=== PATIENT | female | born 1950 | race Caucasian/White ===

== ENCOUNTER → 2017-12-12 15:04 | Outpatient (CLI) | payer MEDICARE, SELFPAY ==
--- NOTE | 2017-12-12 15:10 | DI.RAD.S_ITS ---
PROCEDURE: XR HIP W PEL IF DONE RT 2V INDICATIONS: hip pain TECHNIQUE: AP pelvis with lateral view(s) of the right /hip(s). COMPARISON: None. FINDINGS: Bones: No fractures or dislocations. Pelvic ring appears intact. No suspicious bony lesions. Mild degenerative hip disease right greater than left. Soft tissues: The visualized bowel gas pattern is normal. No suspicious soft tissue calcifications. IMPRESSION: Mild hip joint degeneration. No acute bony abnormality. Dictated by: Cesario Jenkins M.D. on 12/12/2017 at 15:46 Approved by: Cesario Jenkins M.D. on 12/12/2017 at 15:47
[2017-12-12 16:31] LABS: HEMOLYSIS < 15 (0-50); Iron 41 ug/dL (37-170)
[2017-12-12 16:42] LABS: Percent Iron Saturation 10 % (15-50); Total Iron Binding Capacity 428 ug/mL (265-497); Transferrin 351 mg/dL (206-381)
[2017-12-12 16:51] LABS: Add Manual Diff / Slide Review NO; Basophils Percent Auto 0.9 % (0-2); Eosinophils Percent Auto 2.7 % (2-4); Hematocrit 32.1 % (36-46); Hemoglobin 10.8 g/dL (12.0-16.0); Lymphocytes Percent Auto 27.8 % (25-40); Mean Corpuscular HGB Conc 33.6 % (30-36); Mean Corpuscular Hemoglobin 28.3 PG (26-34); Mean Corpuscular Volume 84.4 fL (80-100); Monocytes Percent Auto 6.9 % (3-14); Neutrophils Absolute Auto 5200 /uL (3000-5900); Neutrophils Percent Auto 61.7 % (50-75); Platelet Count 195 X10^3/uL (150-400); Red Cell Distribution Width 18.7 % (11.6-14.8); White Blood Cell Count 8.4 X10^3/uL (4.5-11.0)
== END ==
PROVIDERS: PCP Family Medicine; Visit Provider Family Medicine
DX: D64.9 Anemia, unspecified (principal)
CPT/HCPCS: 36415; 73502; 83540; 83550; 85025

== ENCOUNTER → 2017-12-29 13:30 | Outpatient (CLI) | payer OTHER, MEDICARE, SELFPAY | PROVIDERS: PCP Family Medicine; Visit Provider Family Medicine | DX: Z13.820 Encounter for screening for osteoporosis (principal); Z78.0 Asymptomatic menopausal state; E11.9 Type 2 diabetes mellitus without complications; Z85.3 Personal history of malignant neoplasm of breast; S32.000A Wedge compression fracture of unspecified lumbar vertebra, initial encounter for closed fracture | CPT/HCPCS: 77080 ==

== ENCOUNTER 2018-01-27 07:04 | Day surgery (SDC) | payer MEDICARE, SELFPAY ==
[2018-01-27] VITALS (10 sets, daily range): BP systolic 75–147; BP diastolic 23–76; PULSE 63–71; RESP 16–20; TEMP 36.3–36.6; O2SAT 95–100; BMI 39.4
--- NOTE | 2018-01-27 | PATH_ITS ---
[facility] Accession Number: [id number] . 01 Material submitted: . CECAL POLYP . 02 Diagnosis: Biopsy Cecal Polyp: Tubular adenoma involving single biopsy fragment. MRV/01/28/2018 . 02 Electronically signed: . Bobby Canales MD, Pathologist NPI- [id number] . 01 Gross description: . Received in one formalin-filled container, labeled with the patient's name, labeled cecal polyp, are two 0.2-0.3 cm portions of tissue, entirely submitted in one cassette. ([id number]) /FRR . 02 Pathologist provided ICD-10: D12.0 . 02 CPT . 623847 Performed at: 01 [facility] [address] [id number] MD Andrés Yoo MD Phone: [phone] Performed at: 02 [facility] [address] [place], [place] [id number] MD Randy Leach MD Phone: [phone]
--- NOTE | 2018-01-27 07:33 | PM.PREOP ---
Pre-operative Note Interval Note Pre-op Check: History & Physical Reviewed by Physician, Exam Performed and Changes
[2018-01-27] MEDS: LACTATED RINGERS 1,000 ML 100 ML IV (07:35)
--- NOTE | 2018-01-27 08:24 | PM.OP.1 ---
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 However, the colonoscopy was not an adequate study due to poor preparation. Patient has since completed a 2 day preparation and is scheduled for repeat colonoscopy at the recommendation of her leave manager. She remains anemic. Because of her significant comorbid medical conditions she requires general anesthesia as documented in her history and physical examination dated January 20, 2018. Surgeon: Emir Prater Click Yes if Unassisted: Yes Anesthesia Type: General Operative Notes Findings: 1. 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 Adequate bowel preparation 3. No significant diverticular disease noted 4. No fresh or old blood anywhere throughout the colon or rectum 5. Enlarged noninflamed external hemorrhoids 6. Normal internal hemorrhoids 7. Small cecal polyp but no evidence of any other neoplastic disease 8. No evidence of colitis anywhere throughout the colon 9. No obvious source of bleeding or iron-deficiency anemia on endoscopy today 10. Scope withdrawal time was 9:36 minutes Closure Type: not applicable Specimen(s): other (Cecal polyp) Implants & Drains: None Estimated Blood Loss (mL): 2 Blood products transfused: none Procedure in detail: After obtaining informed consent, the patient was brought to the GI suite and placed in the left lateral decubitus position on the examination table. After placement of appropriate monitors, the patient was given incremental doses of Versed and Fentanyl until an appropriate level of sedation was achieved. A time out was held per SCOAP protocol. A digital rectal examination was performed and did not reveal any masses or obstructing lesions. The colonoscope was gently passed into the patient's anus and the entire colon navigated to the level of the cecum with minimal difficulty. Once in the cecum, the scope was withdrawn being sure to go before and beyond all mucosal folds and prominences and get an excellent examination. The findings are noted above. At the level of the rectal vault, the scope was retroflexed and the internal anal canal was examined. The scope was straightened and air aspirated from the colon. The instrument was removed from the patient's body and the procedure was concluded. The patient was allowed to awaken from sedation without difficulty and taken to the post-anesthesia care unit in good condition. Complications: none Condition: stable Disposition: PACU Plan for aftercare: 1. Discharge home 2. Follow-up colonoscopy in 5 years 3. We will contact patient with biopsy results
--- NOTE | 2018-01-27 08:55 | SUR.PHASEII ---
pt without complaints, talking with at bedside, tolerating po juice
== END 2018-01-27 09:09 ==
LOC: OR 07:05
PROVIDERS: PCP Family Medicine; Visit Provider Surgery
PROC: 0DJD8ZZ Inspection of Lower Intestinal Tract, Via Natural or Artificial Opening Endoscopic (ICD-10-PCS; CPT 45378; principal; 2018-01-27 07:45)
DX: D50.9 Iron deficiency anemia, unspecified (principal); K64.4 Residual hemorrhoidal skin tags; E11.9 Type 2 diabetes mellitus without complications; I10 Essential (primary) hypertension; M79.7 Fibromyalgia; E05.00 Thyrotoxicosis with diffuse goiter without thyrotoxic crisis or storm; D12.0 Benign neoplasm of cecum
CPT/HCPCS: 45380; 88305; J2704

== ENCOUNTER → 2018-05-19 11:22 | Outpatient (CLI) | payer MEDICARE, OTHER, SELFPAY ==
[2018-05-19 12:20] LABS: Add Manual Diff / Slide Review NO; Basophils Percent Auto 1.2 % (0-2); Eosinophils Percent Auto 1.9 % (2-4); Hematocrit 31.8 % (36-46); Hemoglobin 9.8 g/dL (12.0-16.0); Lymphocytes Percent Auto 22.9 % (25-40); Mean Corpuscular HGB Conc 30.8 % (30-36); Mean Corpuscular Hemoglobin 22.4 PG (26-34); Mean Corpuscular Volume 72.9 fL (80-100); Monocytes Percent Auto 7.6 % (3-14); Neutrophils Absolute Auto 5200 /uL (3000-5900); Neutrophils Percent Auto 66.4 % (50-75); Platelet Count 193 X10^3/uL (150-400); Red Blood Cell Count 4.37 X10^6/uL (4.0-5.2); Red Cell Distribution Width 17.8 % (11.6-14.8); White Blood Cell Count 7.9 X10^3/uL (4.5-11.0)
[2018-05-19 12:46] LABS: HEMOLYSIS < 15 (0-50); Iron 26 ug/dL (37-170)
[2018-05-19 12:56] LABS: Percent Iron Saturation 6 % (15-50); Total Iron Binding Capacity 442 ug/dL (265-497); Transferrin 383 mg/dL (206-381)
[2018-05-19 13:01] LABS: Hemoglobin A1C% w Est Avg Glu 8.8 % (4.0-6.0)
== END ==
PROVIDERS: PCP Family Medicine; Visit Provider Internal Medicine Gastroenterology
DX: D50.9 Iron deficiency anemia, unspecified (principal)
CPT/HCPCS: 36415; 83036; 83540; 83550; 85025

== ENCOUNTER → 2018-05-20 10:44 | Outpatient (CLI) | payer MEDICARE, OTHER, SELFPAY ==
[2018-05-27 13:44] LABS: H. Pylori Antigen Stool Detected
== END ==
PROVIDERS: Family Provider Family Medicine; PCP Family Medicine; Referring Provider Student in an Organized Health Care Education/Training Program; Visit Provider Internal Medicine Gastroenterology
DX: D50.9 Iron deficiency anemia, unspecified (principal)
CPT/HCPCS: 86677

== ENCOUNTER → 2018-12-04 11:42 | Outpatient (CLI) | payer MEDICARE, OTHER, SELFPAY ==
[2018-12-04 13:11] LABS: Hemoglobin A1C% w Est Avg Glu 7.8 % (4.0-6.0)
[2018-12-04 13:34] LABS: Alanine Aminotransferase 30 IU/L (9-52); Albumin 3.9 g/dL (3.5-5.0); Albumin Globulin Ratio 1.3 (1.0-2.8); Alkaline Phosphatase 83 U/L (38-126); Aspartate Aminotransferase 30 IU/L (14-36); BUN Creatinine Ratio 21.4 (6-22); Bilirubin Total 0.6 mg/dL (0.2-1.3); Blood Urea Nitrogen 15 mg/dL (7-17); Calcium 9.1 mg/dL (8.4-10.2); Carbon Dioxide 25 mmol/L (22-32); Chloride 106 mmol/L (98-107); Estimated Glomerular Filt Rate > 60.0 mL/min (>60); Globulin 3.1 g/dL (1.7-4.1); Glucose 137 mg/dL (80-110); HEMOLYSIS < 15 (0-50); Potassium 5.1 mmol/L (3.4-5.1); Sodium 140 mmol/L (137-145)
[2018-12-04 14:34] LABS: Creatinine Urine Random 83.6 mg/dL
[2018-12-04 14:39] LABS: Microalbumi Creatinin Ratio Ur 84.9 ug/mg CR (<30); Microalbumin Urine Random 7.1 mg/dL (0-1.6)
== END ==
PROVIDERS: PCP Family Medicine; Visit Provider Family Medicine
DX: E11.69 Type 2 diabetes mellitus with other specified complication (principal); E66.9 Obesity, unspecified; I10 Essential (primary) hypertension
CPT/HCPCS: 36415; 80053; 82043; 82570; 83036

== ENCOUNTER → 2018-12-12 09:31 | Outpatient (CLI) | payer MEDICARE, SELFPAY ==
--- NOTE | 2018-12-12 | DI.MRI.S_ITS ---
PROCEDURE: MR LUMBAR SPINE WO CON INDICATIONS: Spinal stenosis, lumbar region with neurogenic TECHNIQUE: Noncontrast sagittal T1 spin echo and T2 fast echo, sagittal STIR, axial T1 and T2 fast spin echo through the lumbar spine. In cases with scoliosis, additional coronal T2 fast spin echo may be performed. COMPARISON: [facility], CR, XR LUMBAR SPINE WITH OLBIQUES PLUS FLEXION EXTENSION, 04/21/2018, 13:32. FINDINGS: Image quality: Excellent. Alignment and Curvature: There is a stable bony alignment in this patient who has prior plain film imaging documenting a L3 compression fracture that is moderate in severity with reference to the April 2018 plain film examination.. Bone Marrow: Marrow is of normal overall signal. No acute vertebral body compression fractures. Spinal Cord: Conus medullaris terminates at the L1 level. Visualized cord demonstrates normal signal and size. Paraspinous Soft Tissues: No paravertebral masses. L1-L2: Moderate degenerative disc disease with a posterior broad-based transverse disc bulge that is slightly more prominent exactly at the midline. No spinal or foraminal stenosis of significance. L2-L3: The degenerative disc disease at this level is moderately severe, and facet osteoarthritis is moderate in severity. This results in moderate to moderately severe concentric spinal stenosis when the facet osteoarthritis and ligamentum flavum hypertrophy is taken into account associated with the degenerative change. There is also symmetric mild to moderate foraminal stenosis. No disc herniation is associated. L3-L4: The L3 moderate compression fracture is chronic, and not associated with retropulsion of bone fragments into the spinal canal. The disc level shows no significant spinal or foraminal stenosis. L4-L5: Mild degenerative disc disease with facet osteoarthritis is moderately severe and this leads to moderately severe foraminal stenosis slightly greater on the left than the right. Moderate spinal stenosis is concentric associated with the slight posterior disc bulge but more prominently from the facet hyperostosis and ligamentum flavum hypertrophy that is symmetric. Mild grade 1 anterolisthesis is present at this level. L5-S1: Minimal degenerative disc disease, moderate facet osteoarthritis. Minimal foraminal stenosis, no spinal stenosis. IMPRESSION: The degenerative disc disease and facet osteoarthritis along the lumbosacral spine is moderately severe overall and there is a compression fracture that is moderate in severity and chronic in appearance at L3. Concentric spinal and foraminal stenosis is present, most prominent at L2-3 and L4-5 with no disc herniation found. Multilevel nerve root impingement likely is present as discussed in detail by level and the body of the report above. Dictated by: Jomar Champagne M.D. on 12/15/2018 at 12:07 Approved by: Jomar Champagne M.D. on 12/15/2018 at 12:18
== END ==
PROVIDERS: PCP Family Medicine; Visit Provider Physical Medicine & Rehabilitation
DX: M48.062 Spinal stenosis, lumbar region with neurogenic claudication (principal); M51.36 Other intervertebral disc degeneration, lumbar region; M51.37 Other intervertebral disc degeneration, lumbosacral region; M48.56XA Collapsed vertebra, not elsewhere classified, lumbar region, initial encounter for fracture; M47.817 Spondylosis without myelopathy or radiculopathy, lumbosacral region; M47.816 Spondylosis without myelopathy or radiculopathy, lumbar region
CPT/HCPCS: 72148

== ENCOUNTER → 2019-03-10 12:33 | Outpatient (CLI) | payer MEDICARE, SELFPAY ==
[2019-03-10 12:50] LABS: Hematocrit 31.2 % (36-46); Hemoglobin 9.8 g/dL (12.0-16.0); Mean Corpuscular HGB Conc 31.5 % (30-36); Mean Corpuscular Hemoglobin 23.4 PG (26-34); Mean Corpuscular Volume 74.4 fL (80-100); Platelet Count 181 X10^3/uL (150-400); Red Blood Cell Count 4.19 X10^6/uL (4.0-5.2); Red Cell Distribution Width 17.6 % (11.6-14.8); White Blood Cell Count 7.1 X10^3/uL (4.5-11.0)
[2019-03-10 13:14] LABS: HEMOLYSIS < 15 (0-50); Iron 29 ug/dL (37-170)
[2019-03-10 13:25] LABS: Percent Iron Saturation 7 % (15-50); Total Iron Binding Capacity 435 ug/dL (265-497); Transferrin 362 mg/dL (206-381)
[2019-03-10 13:39] LABS: Ferritin 5.8 ng/mL (11.1-264)
[2019-03-10 13:45] LABS: TSH w/ Reflex to FT4 3.05 uIU/mL (0.47-4.68)
[2019-03-10 15:55] LABS: Neutrophils Absolute Manual 5680 /uL (3000-5900); RBC Morphology Normal Morphology; Total Cells Counted 100
== END ==
PROVIDERS: PCP Family Medicine; Visit Provider Family Medicine
DX: D50.9 Iron deficiency anemia, unspecified (principal); E03.9 Hypothyroidism, unspecified; L29.9 Pruritus, unspecified
CPT/HCPCS: 36415; 82728; 83540; 83550; 84443; 85025

== ENCOUNTER → 2019-03-23 13:01 | Outpatient (CLI) | payer MEDICARE, SELFPAY ==
--- NOTE | 2019-03-23 13:05 | DI.MG.S_ITS ---
BILATERAL DIGITAL DIAGNOSTIC MAMMOGRAM 3D/2D POST LUMPECTOMY: 03/23/2019 CLINICAL: Left breast pain. Comparison is made to exams dated: 02/21/2015 mammogram, 04/01/2014 mammogram, 01/18/2014 mammogram, and 08/19/2012 mammogram - [facility]. There are scattered fibroglandular elements in both breasts. There is a square marker overlying the skin of the superior lateral left breast at the site of the patient's reported focal pain. Patient's prior surgical site with scarring and surgical clips is identified posterior to the marker on the L XCCL view. There is no additional mass or mammographic abnormality immediately under the marker. Linear scar markers overlie the breasts bilaterally. No significant masses, calcifications, or other findings are seen in either breast. IMPRESSION: INCOMPLETE: NEEDS ADDITIONAL IMAGING EVALUATION Postsurgical scarring and surgical clips in the lateral left breast/axilla, posterior to the site of patient's reported focal pain of the superior lateral left breast. No additional mass or abnormality to correlate with the site of the patient's reported focal breast pain of the superior lateral left breast. Targeted diagnostic ultrasound recommended for further evaluation, which will be performed immediately following this exam. This exam was interpreted at Station ID: [id number]. NOTE: For mammograms, a report in lay terms will be sent to the patient. Approximately 15% of breast malignancies will not be visualized mammographically. In the management of a palpable breast mass, a negative mammogram must not discourage biopsy of a clinically suspicious lesion. Electronically Signed By: Freddy Renner M.D. ecl/:03/23/2019 14:22:46 ACR BI-RADS Category 0: Incomplete [id number]
--- NOTE | 2019-03-23 13:05 | DI.US.S_ITS ---
LIMITED ULTRASOUND OF LEFT BREAST AND AXILLA: 03/23/2019 CLINICAL: Focal left breast pain. Comparison is made to exams dated: 03/23/2019 mammogram - [facility], 02/21/2015 mammogram, 04/01/2014 mammogram, 04/01/2014 ultrasound, 01/18/2014 mammogram, and 08/19/2012 mammogram - [facility]. Color flow and real-time ultrasound of the left breast 1-3 o'clock, and axilla regions were performed. Leblanc scale images of the real-time examination were reviewed. The patient indicates that her focal area of pain is located at approximately the 1:00 to 3:00 position of the left breast approximately 7-8 cm from the nipple. There is a 0.4 x 0.4 x 0.4 cm oval indistinct hypoechoic cyst with low-level internal echogenic foci, mild posterior heterogeneous acoustic enhancement, and no vascularity on Doppler imaging located in the left breast at 1:30 position 8 cm from the nipple. There are multiple (at least 3) subcentimeter oval circumscribed peripherally hypoechoic and centrally hyperechoic probable intramammary lymph nodes in the left breast at 2:00 position 8 cm from the nipple, with the largest measuring 0.6 x 0.3 x 0.8 cm. These demonstrate no vascularity on Doppler ultrasound. There is a 1.4 x 1.7 x 1.2 cm heterogeneously hypoechoic area of parenchymal scarring immediately underlying a linear scar marker and adjacent the incision site on the patient's left breast at 3:00 position 6 cm from the nipple, consistent with scarring from patient's prior lumpectomy. There is no abnormal vascularity to this region on Doppler ultrasound. No other masses or abnormalities are identified in the area of patient's focal pain. Targeted ultrasound of the left axilla demonstrates no left axillary lymphadenopathy. IMPRESSION: PROBABLY BENIGN 1. 0.4 cm complicated cyst in the left breast at 1:30 position 8 cm from the nipple is probably benign and may represent an oil cyst. 2. Multiple subcentimeter probable intramammary lymph nodes in the left breast at 2:00 position 8 cm from the nipple are probably benign. 3. 1.7 cm heterogeneously hypoechoic area of parenchymal scarring in the left breast at 3:00 position 6 cm from the nipple is probably benign. 4. A followup diagnostic mammogram and targeted left breast ultrasound in 6 months is recommended to demonstrate stability of the above described findings. Clinical followup for further evaluation and management of the patient's symptoms is also recommended. The patient is advised to monitor her breasts and return sooner for reevaluation should she feel anything grow or change. This exam was interpreted at Station ID: [id number]. Electronically Signed By: Freddy Renner M.D. ecl/:03/23/2019 18:08:45 letter sent: Followup Recommended Ultrasound BI-RADS: 3 Probably benign
== END ==
PROVIDERS: PCP Family Medicine; Visit Provider Family Medicine
DX: R92.8 Other abnormal and inconclusive findings on diagnostic imaging of breast (principal); N60.02 Solitary cyst of left breast; N64.4 Mastodynia; Z85.3 Personal history of malignant neoplasm of breast
CPT/HCPCS: 76642; 77066; G0279

== ENCOUNTER → 2019-04-07 15:11 | Outpatient (CLI) | payer MEDICARE, SELFPAY ==
[2019-04-09 18:35] LABS: Fecal Immunochemical Test NOT DETECTED (NOT DETECTED)
== END ==
PROVIDERS: PCP Family Medicine; Visit Provider Family Medicine
DX: D50.9 Iron deficiency anemia, unspecified (principal); Z12.11 Encounter for screening for malignant neoplasm of colon
CPT/HCPCS: 82274

== ENCOUNTER → 2019-04-14 12:18 | Outpatient (CLI) | payer MEDICARE, SELFPAY ==
[2019-04-14 13:55] LABS: HEMOLYSIS < 15 (0-50); Iron 272 ug/dL (37-170)
[2019-04-14 14:07] LABS: Percent Iron Saturation 66 % (15-50); Total Iron Binding Capacity 414 ug/dL (265-497); Transferrin 331 mg/dL (206-381)
== END ==
PROVIDERS: PCP Family Medicine; Visit Provider Family Medicine
DX: D50.9 Iron deficiency anemia, unspecified (principal)
CPT/HCPCS: 36415; 83540; 83550

== ENCOUNTER → 2019-04-29 07:39 | Outpatient (CLI) | payer MEDICARE, SELFPAY ==
--- NOTE | 2019-04-29 07:43 | DI.RAD.S_ITS ---
PROCEDURE: XR CHEST 2V INDICATIONS: chest pain, RAMÍREZ TECHNIQUE: 2 views of the chest were acquired. COMPARISON: Sternal radiographs 06/16/2016. FINDINGS: Surgical changes and devices: Left breast and axilla surgical clips.. Lungs and pleura: Low lung volumes. Streaky and hazy opacity in the lower left lung and right lung base. No consolidation demonstrated. Pulmonary vasculature markings appear prominent. No pleural effusions or pneumothorax. Mediastinum: Mediastinal contours are within normal limits. Heart size is normal. Bones and chest wall: No suspicious bony abnormalities. Soft tissues appear unremarkable. IMPRESSION: 1. Low lung volumes. Streaky and hazy lower left lung and right basilar opacity. Favor atelectasis over aspiration or pneumonia. 2. Prominence of the pulmonary vasculature markings is felt to be related to the low lung volumes and less likely fluid overload. Dictated by: Kiran Brooks M.D. on 04/29/2019 at 9:11 Approved by: Kiran Brooks M.D. on 04/29/2019 at 9:15
--- NOTE | 2019-04-29 08:55 | P.PCN_ITS ---
Cardiac Stress Test Report Referral & Results Date Patient Seen: 04/29/19 Time Patient Seen: 08:30 Requesting provider: Wilder Gomez Indication: Dyspnea on exertion Procedure Note: Today following both written and verbal informed consent the patient was exercised according to a standard Adrian protocol patient went for a total of one minute achieving a maximum heart rate of 105. Exercise was modified at this point because it became apparent that we would not reach are heart rate targets before shortness of breath limited exercise. We converted her to a walking Lexiscan. The patient spent an additional 2-3 minutes on the treadmill before being returned to the [facility] in the supine position. The patient had a normal response to all infused materials. Markedly shortness of breath and wheezy on exertion. O2 sat remained greater than 95% throughout the exam. No other signs or symptoms of angina. No changes in EKG. Impression: Successful Casi protocol. Exercise capacity is limited by shortness of breath; consider pulmonary evaluation. Will await perfusion imaging. Please note: Actual ECG tracings can be found in the PACS system.
--- NOTE | 2019-05-01 08:23 | DI.NM.S_ITS ---
DATE OF SERVICE: 04/29/2019 PROCEDURE PERFORMED: Exercise treadmill converted to pharmacologic vasodilator [id number] myocardial perfusion imaging with gating to assess ejection fraction and regional wall motion. ORDERING PHYSICIAN: Wilder Gomez MD INDICATIONS: The patient is a 69-year-old obese, hypertensive, hyperlipidemic, diabetic female with exertional dyspnea. CARDIAC STRESS: The patient was initially stressed on the treadmill but was able to exercise for only 2 minutes, needing to stop because of significant dyspnea despite O2 saturations greater than 95%. Because of this, she was changed to a pharmacologic stress and was injected with 0.4 mg of regadenoson and continued to walk on a treadmill at a low rate. With this, she had a normal heart rate and blood pressure response, achieving a maximum heart rate of 127 bpm (85% of her predicted maximum). Her resting blood pressure of 140/74 increased to a maximum of 200/80. She had no chest discomfort. Her resting ECG appears normal, and there are no significant ischemic changes with stress, although there is considerable motion artifact. There were no obvious arrhythmias. Per protocol, the patient was injected with 27.2 mCi of technetium 99 Myoview and was imaged 15 minutes later using a gated SPECT acquisition protocol. She returned the following day and was reinjected with an additional 27.1 mCi of technetium 99 Myoview and was imaged 30 minutes later, again using a gated SPECT acquisition protocol. FINDINGS: 1. Raw data: There is fair myocardial tracer uptake with mild breast attenuation noted. Lung/heart ratio is elevated at 0.48 which can be a sign of pulmonary congestion. TID ratio is normal at 0.79. 2. Quantitative gated SPECT: Post-stress ejection fraction is estimated at 77% without any focal wall motion abnormality, and specifically the anterior wall appears to have normal contractility. Resting ejection fraction is 64% with an end-diastolic volume of 126 mL. 3. Post-stress supine images show a fairly normal perfusion pattern but with a mild defect in the distal portion of the left ventricle involving the anterior septum, anterior wall, and anterolateral wall in a pattern that would be consistent with breast attenuation artifact, supported by its complete resolution on the prone images, which show a more normal perfusion pattern. The resting images show an identical perfusion pattern to the post-stress supine images. IMPRESSION: 1. Probable normal myocardial perfusion study. 2. Mild fixed distal anterior, apical and lateral defect that resolves on prone imaging, most consistent with attenuation artifact. A previous nontransmural infarction cannot be entirely excluded but seems unlikely given the distribution and absence of any regional wall motion abnormality. There is no evidence for any significant myocardial ischemia. 3. Normal left ventricular systolic function without any focal wall motion abnormality. Increased lung tracer uptake can be a sign of pulmonary congestion, but clinical correlation is recommended. 4. Markedly reduced exercise capacity because of exertional dyspnea, but no chest discomfort or ECG evidence of ischemia. She had a borderline hypertensive blood pressure response but no arrhythmias. Jaja Rueda - RS/fn/ts doc#: [id number]/job#: [id number] dd: 04/30/2019 16:42:00 dt: 05/01/2019 08:04:00 DICTATING /COPIES TO: Moisés Shultz MD; Wilder Gomez MD COPIES MNE: PHILIP RED
== END ==
PROVIDERS: PCP Family Medicine; Referring Provider Student in an Organized Health Care Education/Training Program; Visit Provider Internal Medicine Cardiovascular Disease
DX: R06.09 Other forms of dyspnea (principal); R07.89 Other chest pain; E11.9 Type 2 diabetes mellitus without complications; I10 Essential (primary) hypertension; E78.5 Hyperlipidemia, unspecified; E66.9 Obesity, unspecified
CPT/HCPCS: 71046; 78452; 93016; 93017; 93018; A9502; J2785

== ENCOUNTER → 2019-05-06 07:55 | Outpatient (CLI) | payer MEDICARE, SELFPAY ==
--- NOTE | 2019-05-06 | DI.ECHO.S_ITS ---
[facility] +---------+ : : [address] : : : : [id number] : : : : Phone: [phone]+ Echocardiogram Report + + :Name: SANKETJERAD Laly Study Date: 05/06/2019 Height: 62 in : :[facility] Weight: 218 lb: : Gender: Female BSA: 2.0 m2 : :: 1950 Age: 69 yrs : : Performed By: KW : :Referring: LORENZO BLANCO : + + Interpretation Summary The ejection fraction is estimated to be 60-65%. There is no significant valvular heart disease. Procedure: A two-dimensional transthoracic echocardiogram with color flow and Doppler was performed. The study quality was technically adequate. There is no prior echocardiogram noted for this patient. The patient was in normal sinus rhythm during the exam. Left Ventricle: The left ventricle is normal in size, wall thickness, and systolic function without any focal wall motion abnormalities. The ejection fraction is estimated to be 60-65%. Left ventricular wall motion is normal. Right Ventricle: The right ventricle grossly appears normal in size with probable normal systolic function. Atria: The left atrial size is normal. Right atrial size is normal. The interatrial septum is intact with no evidence for an atrial septal defect. Mitral Valve: The mitral valve is grossly normal. There is trace mitral regurgitation. Aortic Valve: The aortic valve opens well. No aortic regurgitation is present. Tricuspid Valve: The tricuspid valve is normal in structure and function. No tricuspid regurgitation. Pulmonic Valve: The pulmonic valve is not well seen, but is grossly normal. There is no pulmonic valvular regurgitation. Great Vessels: The aortic root is normal size. The dimensions of the ascending aorta are normal. The aortic arch is normal in size. Inspiratory collapse cannot be assessed because of mechanical ventilation, thus CVP cannot be estimated.. Pericardium/ Pleura There is no pericardial effusion. There is no pleural effusion. MMode/2D Measurements & Calculations LVIDd: 4.8 cm Ao root diam: 3.0 cm LVIDs: 2.7 cm Aortic Jxn: 2.2 cm FS: 43.3 % asc Aorta Diam: 3.2 cm EPSS: 0.74 cm Ao Arch Diam (Prox Trans): 2.7 cm IVSd: 0.97 cm LVPWd: 1.0 cm LV ramirez. diameter/BSA (cm/m^2): 2.4 LV sys. diameter/BSA (cm/m^2): 1.4 LA dimension: 4.1 cm RA long axis: 4.7 cm LA A2 area: 23.1 cm2 RA area: 12.4 cm2 LA A4 area: 21.3 cm2 RA vol: 27.6 ml LA length (vol): 6.4 cm RA : 13.9 ml/m2 LA vol: 65.7 ml IVC diam: 1.4 cm LA vol index: 33.1 ml/m2 RVDd major: 4.7 cm RVD1 (basal): 2.5 cm RVD2 (mid): 2.1 cm Doppler Measurements & Calculations Ao V2 max: 177.3 cm/sec MV E max oskar: 95.3 cm/sec Ao V2 mean: 121.5 cm/sec MV A max oskar: 96.1 cm/sec Ao max P.6 mmHg MV E/A: 0.99 Ao mean P.7 mmHg Med Peak E' Oskar: 4.7 cm/sec Ao V2 VTI: 39.8 cm E/E' med: 20.1 Lat Peak E' Oskar: 6.6 cm/sec E/E' lat: 14.4 E/e' average: 17.2 MV dec time: 0.38 sec MV P1/2t: 111.6 msec PA V2 max: 117.3 cm/sec MV P1/2t max oskar: 94.7 cm/sec PA V2 mean: 72.5 cm/sec MVA(P1/2t): 2.0 cm2 PA mean P.5 mmHg PA Accel Time: 0.14 sec Reading Physician:01:06 PM
== END ==
PROVIDERS: Family Provider Family Medicine; PCP Family Medicine; Visit Provider Internal Medicine Cardiovascular Disease
DX: R06.09 Other forms of dyspnea (principal)
CPT/HCPCS: 93306

== ENCOUNTER → 2019-05-28 09:00 | Outpatient (CLI) | payer MEDICARE, SELFPAY ==
[2019-05-28 11:45] LABS: BUN Creatinine Ratio 26.7 (6-22); Blood Urea Nitrogen 16 mg/dL (7-17); Calcium 9.2 mg/dL (8.4-10.2); Carbon Dioxide 25 mmol/L (22-32); Chloride 106 mmol/L (98-107); Estimated Glomerular Filt Rate > 60.0 mL/min (>60); Glucose 171 mg/dL (80-110); HEMOLYSIS < 15 (0-50); Potassium 3.9 mmol/L (3.4-5.1); Sodium 140 mmol/L (137-145)
== END ==
PROVIDERS: PCP Family Medicine; Visit Provider Internal Medicine Cardiovascular Disease
DX: R06.02 Shortness of breath (principal)
CPT/HCPCS: 36415; 80048

== ENCOUNTER → 2021-06-22 15:04 | Outpatient (CLI) | payer MEDICARE, SELFPAY ==
[2021-06-22 15:47] LABS: COVID19 -Nasal RAPID Negative (Negative)
== END ==
PROVIDERS: PCP Family Medicine; Visit Provider Nurse Practitioner Family
DX: Z20.822 Contact with and (suspected) exposure to COVID-19 (principal)
CPT/HCPCS: 87635

== ENCOUNTER → 2021-06-22 16:39 | Outpatient (CLI) | payer MEDICARE, SELFPAY ==
--- NOTE | 2021-06-22 16:41 | DI.RAD.S_ITS ---
PROCEDURE: XR CHEST 2V INDICATIONS: cough TECHNIQUE: 2 views of the chest were acquired. COMPARISON: [facility], CR, XR CHEST 2V, 04/29/2019, 8:51. FINDINGS: Surgical changes and devices: None. Lungs and pleura: There is blunting of the right costophrenic angle. Bibasilar opacities are present. Mediastinum: Mediastinal contours are normal. Heart size is normal. Bones and chest wall: No suspicious bony abnormalities. Soft tissues appear unremarkable. IMPRESSION: Blunting the right costophrenic angle likely trace effusion. Bibasilar opacities are present possibly related to dependent change versus atelectasis/developing pneumonia. Dictated by: Kavita Casey M.D. on 06/22/2021 at 16:54 Approved by: Kavita Casey M.D. on 06/22/2021 at 16:54
== END ==
PROVIDERS: PCP Family Medicine; Referring Provider Nurse Practitioner Family; Visit Provider Nurse Practitioner Family
DX: R05.9 Cough, unspecified (principal); Z20.822 Contact with and (suspected) exposure to COVID-19
CPT/HCPCS: 71046; 87635

== ENCOUNTER 2021-06-23 04:02 | Observation (INO) | payer MEDICARE, SELFPAY ==
[2021-06-23] VITALS (40 sets, daily range): BP systolic 123–220; BP diastolic 57–90; PULSE 76–90; RESP 14–35; TEMP 36.2–37.2; O2SAT 95–99; BMI 40.2
--- NOTE | 2021-06-23 04:15 | ED.SOB ---
HPI - SOB/Dyspnea General Chief Complaint: Shortness of Breath/Dyspnea Stated Complaint: trouble breathing, heavy feeling in chest Time Seen by Provider: 06/23/21 04:06 History of Present Illness HPI Narrative: 71-year-old female former smoker with history of hypertension and diabetes presents with her in the chief complaint of worsening shortness of breath over the past few days. She complains of exertional dyspnea, orthopnea and a 10 lb weight gain over the past week. She states that her lower extremities have become swollen. She denies any fever or chills. She denies chest pain but does occasionally have some pressure in her mid chest. She denies any recent travel nor is she head injuries, traumas or history of blood clot. She denies any history of congestive heart failure but does have a small dose prescription of Lasix which she states she has been taking regularly. Initially she denies any change in her medication regimen or dietary change but after further questioning she states she has not had access to her blood pressure medication due to an issue at the pharmacy for somewhere between 2 and 3 weeks. Her initial blood pressure is 220/90. She denies any headache or blurred vision. She denies any difficulty with speech or extremity numbness, tingling or weakness. She was seen and evaluated at the walk-in clinic today and had a chest x-ray which was largely unremarkable as well as a COVID test which was negative. Related Data Home Medications Medication Instructions Recorded Confirmed cholecalciferol (vitamin D3) 25 1,000 unit PO QDAY #0 tab 05/05/16 06/22/21 mcg (1,000 unit) tablet (Vitamin D3) magnesium oxide 500 mg tablet 500 mg PO BID #0 05/05/16 06/22/21 metformin 1,000 mg tablet 1,000 mg PO BIDCC #0 tab 05/05/16 06/22/21 insulin lispro 100 unit/mL 55 unit SUBCUT QAC #0 vial 06/15/18 06/22/21 subcutaneous solution (Humalog U-100 Insulin) insulin glargine 100 unit/mL 55 unit SUBCUT BEDTIME #1 vial 03/10/19 06/22/21 subcutaneous solution (Lantus U-100 Insulin) furosemide 20 mg tablet 20 mg PO DAILY 06/05/20 06/22/21 pravastatin 20 mg tablet 20 mg PO DAILY 06/05/20 06/22/21 vitamin c PO 06/05/20 06/22/21 losartan 50 mg tablet 50 mg PO DAILY 12/25/20 06/22/21 Previous Rx's Medication Instructions Recorded levothyroxine 137 mcg tablet 137 mcg PO QAM #90 tab 04/07/18 aspirin 81 mg tablet,delayed 81 mg PO DAILY #30 tab 04/07/19 release nystatin 100,000 unit/gram topical 1 applictn TOP BID #45 gram 04/15/19 cream ferrous sulfate 325 mg (65 mg 650 mg PO Q OTHER DAY #30 tab 04/16/19 iron) tablet oxybutynin chloride 5 mg tablet See Rx Instructions .ROUTE 04/16/19 .COMPLEX #180 tablet linaclotide 290 mcg capsule See Rx Instructions .ROUTE 02/05/21 (Linzess) .COMPLEX #90 cap mirabegron 50 mg tablet,extended 50 mg PO DAILY #90 tab 02/12/21 release 24 hr pantoprazole 20 mg tablet,delayed See Rx Instructions .ROUTE 05/24/21 release .COMPLEX #90 tab Allergies Allergy/AdvReac Type Severity Reaction Status Date / Time codeine [CODEINE] Allergy Unknown emesis Verified 12/25/20 10:52 atorvastatin Allergy Verified 12/25/20 10:52 peanut Allergy Verified 12/25/20 10:52 gabapentin AdvReac hives Verified 12/25/20 10:52 Review of Systems Review of Systems Narrative: GENERAL: Denies chills, fatigue, malaise, fever, sweats. HEENT: Denies sinus pain, ear pain, sore throat, difficulty swallowing, dizziness. RESPIRATORY: See HPI CARDIOVASCULAR: See HPI, GASTROINTESTINAL: Denies nausea, vomiting, abdominal pain, diarrhea, constipation, melena. : Denies dysuria, frequency, incontinence, hematuria, urinary retention. MUSCULOSKELETAL: denies weakness, joint pain, or bony pain SKIN: Denies rash, skin lesions, or other NEUROLOGIC: Denies weakness, headache, numbness, change in speech, confusion, seizures, incoordination. PSYCHIATRIC: No concerning psychosocial issues. 12 point review of systems is negative except for those stated above Patient History Medical History Acne Ankle pain Breast cancer (2003) Cataract Chicken pox Chronic headaches Colon polyp Compression fracture of L3 lumbar vertebra (12/2017) CTS (carpal tunnel syndrome) Diabetes mellitus type 2 in obese (06/28/16) Essential hypertension (06/28/16) Fecal incontinence Fibromyalgia (06/28/16) Fractures Graves' disease (06/28/16) H. pylori infection Hayfever Hemorrhoids History of heavy periods Iron deficiency anemia Irregular periods/menstrual cycles Malignant neoplasm of left breast, stage 4 (2015) Measles Migraine with aura and without status migrainosus, not intractable (06/28/16) Mumps Recurrent UTI (urinary tract infection) Rosacea Shoulder pain Systemic lupus erythematosus (06/28/16) Urinary incontinence Surgical History Anesthesia History of surgery (~195) Status post hysterectomy Status post knee surgery (1998) Status post knee surgery (2004) Status post shoulder surgery (~2006) Family History Brother Age: 66 Diabetes mellitus Father Cancer Heart disease Essential hypertension Cerebrovascular accident (CVA), unspecified mechanism High cholesterol Blood disease Grandfather Cancer Diabetes mellitus Heart disease Cerebrovascular accident (CVA), unspecified mechanism Grandmother Essential hypertension Heart disease High cholesterol Mother Age: 92 Essential hypertension Grandfather Cerebrovascular accident (CVA), unspecified mechanism Cancer Grandmother Heart disease Essential hypertension High cholesterol Cancer Social History marital status: household members: spouse pets and animals: Yes education level: college jacqui/muslim: adventism seatbelt use: always helmet use: Yes water heater temp set < 120 deg: Yes working smoke detector in home: Yes fire extinguisher in home: Yes carbon monox detector in home: Yes Smoking Status: Never smoker during the past year weight has: remained stable well-balanced diet: about half the time daily servings fruits/ve-4 eating out: 1-3 times/week Type(s) of exercise: walking frequency: 3-4 times per week duration: 60-90 minutes/day Smoking Status: Never smoker Exam Narrative Exam Narrative: GENERAL: [71 year old patient appears stated age. Well-developed patient, in mild distress. Short of breath with minimal exertion, tachypnea and conversational dyspnea HEAD: Atraumatic. Normocephalic. EYES: Pupils equal round and reactive. Extraocular motions intact. No scleral icterus. No injection or drainage. ENT: Nose without bleeding, purulent drainage. Throat without erythema, tonsillar hypertrophy or exudate. Airway patent. NECK: Trachea midline. Non tender CARDIOVASCULAR: Regular rate and rhythm without murmurs, gallops, or rubs. RESPIRATORY: Crackles in bilateral bases, increased work of breathing with minimal exertion GASTROINTESTINAL: Abdomen soft, non-tender, nondistended. RECTAL: heme NEG. Performed with patient permission and female nursing acid purification equipment operator at the bedside. EXTREMITIES: Bilateral lower extremity pitting edema, 2+ BACK: Nontender without deformity or crepitance. No flank tenderness. NEURO: AOx3. SKIN: No rash or erythema of visible areas Initial Vital Signs Initial Vital Signs: Vital Signs Temperature 97.9 F 06/23/21 04:23 Pulse Rate 76 06/23/21 04:23 Respiratory Rate 26 H 06/23/21 04:23 Blood Pressure 220/88 H 06/23/21 04:23 Pulse Oximetry 98 06/23/21 04:23 Course Orders Ordered: ED Orders 06/23/21 04:17 XR chest 2V Stat 06/23/21 04:18 EKG-12 Lead Stat 06/23/21 04:30 Complete Blood Count AUTO DIFF Stat Comprehensive Metabolic Panel Stat D Dimer Stat Magnesium Stat NT-proBNP (BNP-Adult 18+) Stat Troponin & CK Cardiac Panel Stat 06/23/21 04:59 Packed Cells Stat Type and Screen Stat Discontinued Medications Furosemide (Furosemide 40 Mg/4 Ml Vial) 40 mg IV NOW ONE Stop: 06/23/21 04:17 Last Admin: 06/23/21 04:28 Dose: 40 mg Documented by: DAVE Losartan Potassium (Losartan 50 Mg Tablet) 50 mg PO NOW ONE Stop: 06/23/21 04:31 Last Admin: 06/23/21 05:34 Dose: 50 mg Documented by: OSWALDO Vital Signs Vital signs: Vital Signs - 8 hr 06/23/21 04:23 06/23/21 05:34 Temperature 97.9 F Pulse Rate 76 83 Respiratory Rate 26 H Blood Pressure 220/88 H 191/81 H Pulse Oximetry 98 MDM - SOB/Dyspnea Lab Data Result diagrams: 06/23/21 04:30 06/23/21 04:30 Labs: Lab Results 06/23/21 06/23/21 06/23/21 Range/Units 04:30 04:30 04:30 WBC 4.7 (4.5-11.0) X10^3/uL RBC 3.27 L (4.0-5.2) X10^6/uL Hgb 6.9 L* (12.0-16.0) g/dL Hct 23.0 L (36-46) % MCV 70.5 L (80-100) fL MCH 21.0 L (26-34) PG MCHC 29.8 L (30-36) % RDW 19.6 H (11.6-14.8) % Plt Count 121 L (150-400) X10^3/uL Neut % (Auto) 64.3 (50-75) % Lymph % (Auto) 25.1 (25-40) % [place] % (Auto) 7.8 (3-14) % Eos % (Auto) 1.7 L (2-4) % Baso % (Auto) 1.1 (0-2) % Neut # (Auto) 3000 (6571-9076) /uL Lymph # (Auto) 1200 (4746-9478) /uL [place] # (Auto) 400 (0-900) /uL Eos # (Auto) 100 (0-450) /uL Baso # (Auto) 100 (0-100) /uL D-Dimer 406 H (<230) ng/mL Sodium 140 (137-145) mmol/L Potassium 3.4 (3.4-5.1) mmol/L Chloride 106 (98-107) mmol/L Carbon Dioxide 27 (22-32) mmol/L BUN 16 (7-17) mg/dL Creatinine 0.68 (0.52-1.04) mg/dL Estimated GFR > 60.0 (>60) mL/min BUN/Creatinine Ratio 23.5 H (6-22) Glucose 168 H (80-110) mg/dL Calcium 8.7 (8.4-10.2) mg/dL Magnesium 2.2 (1.6-2.3) mg/dL Total Bilirubin 0.7 (0.2-1.3) mg/dL AST 27 (14-36) IU/L ALT 11 (<35) IU/L Alkaline Phosphatase 50 (38-126) U/L Total Creatine Kinase 110 (30-135) U/L CK-MB (CK-2) 2.99 H (<2.37) ng/mL CK-MB (CK-2) Rel Index 2.7 (1.5-5.0) % Troponin I < 0.012 (0.01-0.034) ng/mL NT-Pro-B Natriuret Pep 345 H (<125) pg/mL Total Protein 7.0 (6.3-8.2) g/dL Albumin 3.8 (3.5-5.0) g/dL Globulin 3.2 (1.7-4.1) g/dL Albumin/Globulin Ratio 1.2 (1.0-2.8) ECG Data Interpretation: Normal sinus rhythm, rate 82, OR 154, QRS 96, QTC 412, no obvious ST segmental elevation or depression, no peaked T-waves or T-wave inversions. Discharge Plan Departure Patient Disposition: Admitted As Inpatient Clinical Impression: Acute CHF, Hypertension, malignant, with acute intensive management, Acute anemia Prescriptions: No Action aspirin 81 mg tablet,delayed release (DR/EC) 81 mg PO DAILY Qty: 30 12RF losartan 50 mg tablet 50 mg PO DAILY 0RF furosemide 20 mg tablet 20 mg PO DAILY 0RF pravastatin 20 mg tablet 20 mg PO DAILY 0RF vitamin c PO 0RF metformin 1,000 MG tablet 1,000 mg PO BIDCC Qty: 0 0RF magnesium oxide 500 MG tablet 500 mg PO BID Qty: 0 0RF cholecalciferol (vitamin D3) [Vitamin D3] 1,000 UNIT tablet 1,000 unit PO QDAY Qty: 0 0RF levothyroxine 137 mcg tablet 137 mcg PO QAM Qty: 90 1RF insulin lispro [Humalog U-100 Insulin] 100 unit/mL solution 55 unit SUBCUT QAC Qty: 0 0RF Lantus U-100 Insulin 100 unit/mL solution 55 unit SUBCUT BEDTIME Qty: 1 0RF nystatin 100,000 unit/gram cream 1 applictn TOP BID Qty: 45 3RF oxybutynin chloride 5 mg tablet See Rx Instructions .ROUTE .COMPLEX Qty: 180 0RF Dose Instruction: TAKE 1 TABLET BY MOUTH TWICE DAILY Rx Instructions: TAKE 1 TABLET BY MOUTH TWICE DAILY ferrous sulfate 325 mg (65 mg iron) tablet 650 mg PO Q OTHER DAY Qty: 30 5RF Rx Instructions: Take with 250 mg ascorbic acid without food, avoid antacids and milk products for 2 hours Linzess 290 mcg capsule See Rx Instructions .ROUTE .COMPLEX Qty: 90 3RF Dose Instruction: TAKE 1 CAPSULE BY MOUTH DAILY Rx Instructions: TAKE 1 CAPSULE BY MOUTH DAILY mirabegron 50 mg tablet extended release 24 hr 50 mg PO DAILY Qty: 90 2RF pantoprazole 20 mg tablet,delayed release (DR/EC) See Rx Instructions .ROUTE .COMPLEX Qty: 90 3RF Dose Instruction: TAKE 1 TABLET BY MOUTH DAILY Rx Instructions: TAKE 1 TABLET BY MOUTH DAILY Referrals: Barbara Hickman MD [Primary Care Provider] -
--- NOTE | 2021-06-23 04:17 | DI.RAD.S_ITS ---
PROCEDURE: XR CHEST 2V INDICATIONS: SOB TECHNIQUE: 2 views of the chest were acquired. COMPARISON: [facility], CR, XR CHEST 2V, 06/22/2021, 16:32. FINDINGS: Surgical changes and devices: None. Lungs and pleura: Persistent blunting of the right costophrenic sulcus, which may reflect scarring or pleural fluid. Bibasilar linear densities are again seen.. No pleural effusions or pneumothorax. Mediastinum: Retrocardiac density, which may reflect a hiatal hernia or eventration of the diaphragm. The cardiac silhouette is within normal limits. Bones and chest wall: No suspicious bony abnormalities. Soft tissues appear unremarkable. IMPRESSION: Bibasilar plate atelectasis. Dictated by: Eldon Kwok M.D. on 06/23/2021 at 6:55 Approved by: Eldon Kwok M.D. on 06/23/2021 at 6:57
[2021-06-23] MEDS: FUROSEMIDE 40 MG/4 ML VIAL IV ×2 (04:28→16:18)
[2021-06-23 04:48] LABS: Basophils Absolute Auto 100 /uL (0-100); Basophils Percent Auto 1.1 % (0-2); Eosinophils Absolute Auto 100 /uL (0-450); Eosinophils Percent Auto 1.7 % (2-4); Lymphocytes Absolute Auto 1200 /uL (1100-4500); Lymphocytes Percent Auto 25.1 % (25-40); Mean Corpuscular HGB Conc 29.8 % (30-36); Mean Corpuscular Volume 70.5 fL (80-100); Monocytes Absolute Auto 400 /uL (0-900); Monocytes Percent Auto 7.8 % (3-14); Neutrophils Absolute Auto 3000 /uL (1500-7000); Neutrophils Percent Auto 64.3 % (50-75); Platelet Count 121 X10^3/uL (150-400); Red Blood Cell Count 3.27 X10^6/uL (4.0-5.2); Red Cell Distribution Width 19.6 % (11.6-14.8); White Blood Cell Count 4.7 X10^3/uL (4.5-11.0)
[2021-06-23 04:51] LABS: Alanine Aminotransferase 11 IU/L (<35); Albumin 3.8 g/dL (3.5-5.0); Albumin Globulin Ratio 1.2 (1.0-2.8); Alkaline Phosphatase 50 U/L (38-126); Aspartate Aminotransferase 27 IU/L (14-36); BUN Creatinine Ratio 23.5 (6-22); Bilirubin Total 0.7 mg/dL (0.2-1.3); Blood Urea Nitrogen 16 mg/dL (7-17); Calcium 8.7 mg/dL (8.4-10.2); Carbon Dioxide 27 mmol/L (22-32); Chloride 106 mmol/L (98-107); Creatine Kinase 110 U/L (30-135); Estimated Glomerular Filt Rate > 60.0 mL/min (>60); Globulin 3.2 g/dL (1.7-4.1); Glucose 168 mg/dL (80-110); HEMOLYSIS < 15 (0-50); Magnesium 2.2 mg/dL (1.6-2.3); Potassium 3.4 mmol/L (3.4-5.1); Sodium 140 mmol/L (137-145)
[2021-06-23 04:52] LABS: D Dimer 406 ng/mL (<230)
[2021-06-23 05:00] LABS: Add Manual Diff / Slide Review SLIDE REVIEW; Hemoglobin 6.9 g/dL (12.0-16.0)
[2021-06-23 05:03] LABS: NT-proBNP (BNP-Adult 18+) 345 pg/mL (<125); Troponin I < 0.012 ng/mL (0.01-0.034)
[2021-06-23 05:06] LABS: CKMB % Relative Index 2.7 % (1.5-5.0); Creatine Kinase MB 2.99 ng/mL (<2.37)
[2021-06-23] MEDS: LOSARTAN 50 MG TABLET PO ×2 (05:34→16:05)
--- NOTE | 2021-06-23 05:48 | DI.ECHO.S_ITS ---
[facility]---------+ [facility] +---------+ : : [address] [place] : : : : [id number] : : : : Phone: [phone]+ Echocardiogram Report + + :Name: JERAD COLES Study Date: 06/23/2021 Height: 62 in : :[facility] ReadingLocation: Weight: 220 lb : : Gender: Female BSA: 2.0 m2 : :: 1950 Age: 71 yrs BP: 188/72 mmHg: :Reason For Study: CHF : : Performed By: Torsten Mckeon : :Referring: JOHN SHAH R : + + Interpretation Summary The left ventricle is normal in size. The ejection fraction is estimated to be 65-70%. There is no echo evidence for significant left ventricular outflow tract obstruction. No significant change in LV function from the previous study. There is no obvious LV thrombus. The right ventricle is at the upper limits of normal in size. The right ventricular systolic function is normal. No gross significant valvular abnormalities seen. Procedure: A two-dimensional transthoracic echocardiogram with color flow and Doppler was performed. The study quality was technically difficult. The subcostal views were difficult to obtain and are suboptimal in quality. Images from the parasternal window were difficult to obtain and are suboptimal in quality. Comparison is made with the echocardiogram of 05/06/2019. The patient was in normal sinus rhythm during the exam. Left Ventricle: The left ventricle is normal in size. Proximal septal thickening is noted. There is no echo evidence for significant left ventricular outflow tract obstruction. There is no thrombus. The ejection fraction is estimated to be 65-70%. There are no focal wall motion abnormalities. MV E/A: 0.95 Med Peak E' Oskar: 6.3 cm/sec E/E' med: 18.3. Right Ventricle: The right ventricle is at the upper limits of normal in size. The right ventricular systolic function is normal. Atria: The left atrium is mildly dilated. Both atria have mildly increased in size since the prior echo exam. The right atrium is borderline dilated. There is no Doppler evidence for an interatrial shunt. Mitral Valve: There is mild mitral annular calcification. The mitral valve chordae are thickened and/or calcified. The mitral papillary muscle appears thickened and/or calcified. There is no mitral valve stenosis. There is trace mitral regurgitation. Aortic Valve: The aortic valve is grossly normal. The aortic valve is not well visualized. The aortic valve opens well. There is no aortic valve stenosis. No aortic regurgitation is present. Tricuspid Valve: The tricuspid valve is not well visualized, but is grossly normal. Pulmonary artery pressures cannot be estimated because of the lack of a measurable TR jet velocity. There is trace tricuspid regurgitation. Pulmonic Valve: The pulmonic valve is not well visualized. Great Vessels: The aortic root is normal size. The ascending aorta is normal in size. The aortic arch is normal in size. The inferior vena cava was not well visualized. Pericardium/ Pleura There is no pericardial effusion. There is an anterior echo-free space consistent with a fat pad. There is no pleural effusion. MMode/2D Measurements & Calculations LVIDd: 4.6 cm LVOT diam: 2.0 cm LVIDs: 2.5 cm Ao root diam: 2.9 cm FS: 45.6 % asc Aorta Diam: 3.2 cm IVSd: 0.71 cm Ao Arch Diam (Prox Trans): 2.6 cm LVPWd: 1.1 cm LV ramirez. diameter/BSA (cm/m^2): 2.3 LV sys. diameter/BSA (cm/m^2): 1.3 LA A2 area: 23.4 cm2 RA long axis: 4.4 cm LA A4 area: 22.7 cm2 RA area: 18.0 cm2 LA length (vol): 5.9 cm RA vol: 62.2 ml LA vol: 76.0 ml RA : 31.3 ml/m2 LA vol index: 38.2 ml/m2 TAPSE: 2.9 cm Doppler Measurements & Calculations Ao V2 max: 207.4 cm/sec LVOT Max Oskar: 135.7 cm/sec Ao V2 mean: 151.7 cm/sec LV V1 max P.4 mmHg Ao max P.2 mmHg LV V1 VTI: 31.7 cm Ao mean P.9 mmHg FAISAL(I,D): 2.0 cm2 Ao V2 VTI: 46.8 cm FAISAL(V,D): 2.0 cm2 sev ratio: 0.68 FAISAL indexed to BSA (cm^2/m^2): 1.0 MV E max oskar: 115.3 cm/sec SV(LVOT): 94.7 ml MV A max oskar: 121.6 cm/sec MV E/A: 0.95 Med Peak E' Oskar: 6.3 cm/sec E/E' med: 18.3 Lat Peak E' Oskar: 7.6 cm/sec E/E' lat: 15.2 E/e' average: 16.7 MV dec time: 0.19 sec Reading Physician:11:56 AM
[2021-06-23 06:15] LABS: Anisocytosis 2+; Hypochromasia 2+; Macrocytosis 1+
[2021-06-23 06:21] LABS: HEMOLYSIS 20 (0-50); Iron 22 ug/dL (37-170)
[2021-06-23 06:32] LABS: Percent Iron Saturation 5 % (15-50); Total Iron Binding Capacity 469 ug/dL (265-497); Transferrin 357 mg/dL (206-381)
--- NOTE | 2021-06-23 09:58 | PM.HP.1 ---
History of Present Illness History of Present Illness Date Patient Seen: 06/23/21 Time Patient Seen: 09:58 Chief complaint: trouble breathing, heavy feeling in chest Narrative: 71-year-old female presented to [facility] Emergency Department with symptoms of heaviness in her chest difficulty breathing. She has actually seen in the walk-in clinic over concerns for possible COVID infection. She tested negative there. Chest x-ray done there was unremarkable She persist with symptoms and so presented to the ED. In addition to the trouble breathing she describes lower extremity swelling as well as about a 10 lb weight gain over a week or so. She also reports an element of orthopnea. Denies any fever chills or true chest pain no palpitations. No change in bowels She has also been off of her losartan for something like 2-3 weeks over issues with prescription refill in pharmacy or something like that. She is quite hypertensive upon presentation. In the ED she was found to be anemic with hemoglobin of 6.9 hematocrit 23%. She has a marked microcytosis as well which is been seen previously but more dramatic. Her BNP is 345. Chest x-ray does not show evidence of congestive heart failure as above She is admitted for evaluation management Patient reports a similar episode in 2018. She was in [place] at the time presented with significant respiratory issues found to be quite anemic similar to today looks like (reviewing prior notes were patient described this in more detail). She subsequently underwent upper and lower endoscopy. Upper endoscopy demonstrated multiple small ulcers and H pylori and she was treated with usual triple treatment for H pylori at that time. Colonoscopy was inadequate and she subsequently had repeated when she return to the [place]. Only small polyp was seen (a tubular adenoma on pathology). She has not seen anybody in Hematology. She is normally anemic with a hemoglobin running around 10 and generally has a microcytosis, reviewing her past labs. Has been at least a year since she was on an iron replacement therapy. Last CBC here was 2019 so difficult to know how long she has been. Even that 2019 study showed mild anemia with microcytosis Patient History Medical History Acne Ankle pain Breast cancer (2004) Cataract Chronic headaches Colon polyp (~2017) Compression fracture of L3 lumbar vertebra (12/2017) CTS (carpal tunnel syndrome) Diabetes mellitus type 2 in obese (06/28/16) Essential hypertension (06/28/16) Fecal incontinence Fibromyalgia (06/28/16) Graves' disease (06/28/16) H. pylori infection (~2017) Hayfever Hemorrhoids History of heavy periods Iron deficiency anemia Irregular periods/menstrual cycles Malignant neoplasm of left breast, stage 4 (2015) Migraine with aura and without status migrainosus, not intractable (06/28/16) Recurrent UTI (urinary tract infection) Rosacea Shoulder pain Systemic lupus erythematosus (06/28/16) Urinary incontinence Surgical History Anesthesia History of surgery (~1957) Status post hysterectomy Status post knee surgery (1998) Status post knee surgery (2004) Status post shoulder surgery (~2006) Family & Social History Family History Brother Age: 66 Diabetes mellitus Father Cancer Heart disease Essential hypertension Cerebrovascular accident (CVA), unspecified mechanism High cholesterol Blood disease Grandfather Cancer Diabetes mellitus Heart disease Cerebrovascular accident (CVA), unspecified mechanism Grandmother Essential hypertension Heart disease High cholesterol Mother Age: 92 Essential hypertension Grandfather Cerebrovascular accident (CVA), unspecified mechanism Cancer Grandmother Heart disease Essential hypertension High cholesterol Cancer Social History: household members spouse Safety & Behavioral: Feels Safe in Current Yes Environment Tobacco & Substance use: Smoking Status Never smoker Substance Use Type does not use Meds Home Medications and Allergies Home Medications Medication Instructions Recorded Confirmed Type magnesium oxide 500 mg tablet 500 mg PO BID #0 05/05/16 06/23/21 History metformin 1,000 mg tablet 1,000 mg PO BIDCC #0 tab 05/05/16 06/23/21 History levothyroxine 137 mcg tablet 137 mcg PO QAM #90 tab 04/07/18 06/23/21 Rx nystatin 100,000 unit/gram topical 1 applictn TOP BID #45 gram 04/15/19 06/23/21 Rx cream furosemide 20 mg tablet 20 mg PO DAILY 06/05/20 06/23/21 History pravastatin 20 mg tablet 20 mg PO DAILY 06/05/20 06/23/21 History losartan 50 mg tablet 50 mg PO DAILY 12/25/20 06/23/21 History linaclotide 290 mcg capsule See Rx Instructions .ROUTE 02/05/21 06/23/21 Rx (Linzess) .COMPLEX #90 cap mirabegron 50 mg tablet,extended 50 mg PO DAILY #90 tab 02/12/21 06/23/21 Rx release 24 hr cholecalciferol (vitamin D3) 25 1,000 unit PO DAILY #30 tab 06/24/21 Rx mcg (1,000 unit) tablet ferrous sulfate 325 mg (65 mg 650 mg PO DAILY #90 tab 06/24/21 Rx iron) tablet insulin glargine 100 unit/mL (3 45 unit (0.45 mL) SUBCUT BEDTIME 06/24/21 Rx mL) subcutaneous pen (Lantus #1 ml Solostar U-100 Insulin) insulin lispro 100 unit/mL 10 unit (0.1 mL) SUBCUT ACHS #1 ml 06/24/21 Rx subcutaneous solution (Humalog U-100 Insulin) oxybutynin chloride 5 mg tablet 5 mg PO BID #60 tab 06/24/21 Rx pantoprazole 40 mg tablet,delayed 40 mg PO BID #60 tab 06/24/21 Rx release Allergies Allergy/AdvReac Type Severity Reaction Status Date / Time codeine [CODEINE] Allergy Unknown emesis Verified 12/25/20 10:52 atorvastatin Allergy Verified 12/25/20 10:52 peanut Allergy Verified 12/25/20 10:52 gabapentin AdvReac hives Verified 12/25/20 10:52 Review of Systems Constitutional Constitutional: Denies excessive sweating, Denies fever(s), Denies headache(s), Denies weakness, Reports weight gain and Denies weight loss Eyes Eyes: Denies change in vision, Denies itchy eyes, Denies loss of vision and Denies other visual disturbances ENT Ears, Nose, Mouth, and Throat: No change in voice, No dysphagia, No dizziness, No otalgia, No headache(s), No hoarseness, No lip swelling, No neck pain, No sore throat, No throat swelling and No tongue swelling Cardiovascular Cardiovascular: Denies chest pain, Denies syncope, Denies rapid heart rate, Denies irregular heart rhythm, Denies palpitations, Reports dyspnea, Reports dyspnea on exertion, Reports orthopnea and Denies slow heart rate Respiratory Respiratory: Denies cough, Denies hemoptysis, Reports dyspnea, Reports dyspnea on exertion, Denies stridor and Denies wheezing Gastrointestinal Gastrointestinal: Denies abdominal pain, Denies bloating, Denies change in bowel habits, Denies change in stool character, Denies dysphagia, Denies nausea, Denies vomiting and Denies hematemesis Genitourinary Genitourinary: Denies hematuria, Denies urinary frequency and Denies difficulty voiding Musculoskeletal Musculoskeletal: Denies abnormal gait, Denies myalgias, Denies arthralgias, Denies limited range of motion and Denies neck pain Integumentary/Breasts Skin/Breast: Denies bleeding lesions, Denies change in pigmentation, Denies changing lesions, Denies new lesions, Denies rash, Denies skin swelling, Denies sores and Denies jaundice Neurologic Neurologic: Denies abnormal speech, Denies abnormal gait, Denies behavioral changes, Denies confusion, Denies dizziness, Denies syncope, Denies headache(s), Denies loss of vision, Denies memory loss, Denies seizure-like activity, Denies paresthesias and Denies weakness Psychiatric Psychiatric: Denies behavioral changes, Denies change in appetite, Denies confusion, Denies difficulty concentrating, Denies auditory hallucinations, Denies memory loss, Denies mood swings and Denies suicidal ideation Endocrine Endocrine: Denies excessive sweating, Denies flushing, Denies polyuria and Denies palpitations Hematologic/Lymphatic Hematologic/Lymphatic: Denies easy bleeding, Denies easy bruising and Denies lymphadenopathy Allergic/Immunologic Allergic/Immunologic: Denies urticaria, Denies itchy eyes, Denies lip swelling, Denies throat swelling, Denies tongue swelling and Denies wheezing Exam Vital Signs (past 8 hours): - 06/23/21 04:23 06/23/21 05:34 06/23/21 09:08 Temperature 97.9 F 97.8 F Pulse Rate 76 83 82 Respiratory Rate 26 H 14 Blood Pressure 220/88 H 191/81 H 179/63 H Blood Pressure [Right Arm] Pulse Oximetry 98 06/23/21 09:19 06/23/21 09:20 06/23/21 09:26 Temperature Pulse Rate 80 81 81 Respiratory Rate 14 21 22 Blood Pressure 136/90 Blood Pressure [Right Arm] 179/63 H Pulse Oximetry 96 97 96 06/23/21 09:27 Temperature 97.1 F L Pulse Rate 81 Respiratory Rate 18 Blood Pressure 136/90 Blood Pressure [Right Arm] Pulse Oximetry Oxygen Delivery Method Room Air Narrative Exam Narrative: Middle-aged female in no obvious distress lying on a gurney in the emergency department HEENT-normocephalic atraumatic PERRLA EOMs intact Neck-no lymphadenopathy no bruits Lungs-clear with good breath sounds no wheezes no crackles Heart-regular rate and rhythm no murmur Abdomen-soft nontender nondistended Extremities-no cyanosis clubbing or edema Neuro-alert oriented x3 moves all 4 extremities, gait not tested, no abnormal reflexes present Objective Labs Result Diagrams: 06/24/21 06:10 06/24/21 06:10 Labs: Laboratory Results - last 24 hr 06/23/21 06/23/21 06/23/21 04:30 04:30 04:30 WBC 4.7 RBC 3.27 L Hgb 6.9 L* Hct 23.0 L MCV 70.5 L MCH 21.0 L MCHC 29.8 L RDW 19.6 H Plt Count 121 L Neut % (Auto) 64.3 Lymph % (Auto) 25.1 [place] % (Auto) 7.8 Eos % (Auto) 1.7 L Baso % (Auto) 1.1 Neut # (Auto) 3000 Lymph # (Auto) 1200 [place] # (Auto) 400 Eos # (Auto) 100 Baso # (Auto) 100 RBC Morphology See below Hypochromasia 2+ H Anisocytosis 2+ H Macrocytosis 1+ H D-Dimer 406 H Sodium 140 Potassium 3.4 Chloride 106 Carbon Dioxide 27 BUN 16 Creatinine 0.68 Estimated GFR > 60.0 BUN/Creatinine Ratio 23.5 H Glucose 168 H Calcium 8.7 Magnesium 2.2 Iron TIBC % Saturation Transferrin Total Bilirubin 0.7 AST 27 ALT 11 Alkaline Phosphatase 50 Total Creatine Kinase 110 CK-MB (CK-2) 2.99 H CK-MB (CK-2) Rel Index 2.7 Troponin I < 0.012 NT-Pro-B Natriuret Pep 345 H Total Protein 7.0 Albumin 3.8 Globulin 3.2 Albumin/Globulin Ratio 1.2 Blood Type Antibody Screen Crossmatch 06/23/21 06/23/21 04:30 06:46 WBC RBC Hgb Hct MCV MCH MCHC RDW Plt Count Neut % (Auto) Lymph % (Auto) [place] % (Auto) Eos % (Auto) Baso % (Auto) Neut # (Auto) Lymph # (Auto) [place] # (Auto) Eos # (Auto) Baso # (Auto) RBC Morphology Hypochromasia Anisocytosis Macrocytosis D-Dimer Sodium Potassium Chloride Carbon Dioxide BUN Creatinine Estimated GFR BUN/Creatinine Ratio Glucose Calcium Magnesium Iron 22 L TIBC 469 % Saturation 5 L Transferrin 357 Total Bilirubin AST ALT Alkaline Phosphatase Total Creatine Kinase CK-MB (CK-2) CK-MB (CK-2) Rel Index Troponin I NT-Pro-B Natriuret Pep Total Protein Albumin Globulin Albumin/Globulin Ratio Blood Type A Positive Antibody Screen Negative Crossmatch See Detail Assessment & Plan Assessment & Plan narrative: 1. Respiratory-patient with respiratory symptoms weight gain and anemia. I think the majority of her respiratory symptoms are coming from her anemia. I do not really think there is a true element of congestive heart failure. There has been some volume expansion I think due to the anemia resulting in the weight gain and edema but her BNP is really fairly normal and her chest x-ray does not reveal evidence of pulmonary edema and she is not hypoxic on room air. Therefore thing most of her symptoms are coming from the anemia. Given the secondary changes related to the anemia that are now present I think she probably been anemic for quite some time. For more complete cardiac workup, I will order an echocardiogram as well. She definitely needs better control her blood pressure Does have a history of iron deficiency anemia clearly struggles to absorb iron. Whether not she has recurrent issues in her stomach is unclear. She would probably benefit from repeat upper endoscopy at some point. Place her on IV proton pump inhibitor at this point. She was guaiac negative in the ER I doubt this is a large volume bleed but more likely is slow bleed over time resulting in again persistent microcytic iron deficiency anemia which is reached a point where she symptomatic. She may benefit from Hematology evaluation and treatment with parental iron in the future. She clearly I think needs to be on oral iron replacement therapy indefinitely. Overall I think that she likely has been anemic and becoming more anemic over time which argues against there being an acute event such as larger volume upper or lower GI bleed in fact she may merely be iron deficient only resulting in anemia from normal red blood cell turnover. For the moment however will transfuse her 2 units of packed red cells giving her diuretic therapy with these units given what I believe to be a slight volume overload state. I would imagine this will help her to feel tremendously better. 2. Hypertension-hypertensive on presentation in the ER but much improved after given her usual medication. Continue patient's usual medications. 3. Diabetes-continue patient's usual meds including her insulin. I will reduce her dose of preprandial insulin slightly given what is probably a more controlled diet here in the hospital. She is using fairly large doses of insulin suggesting a fair amount of insulin resistance in the setting it is a little more unusual to experience hypoglycemia but watch carefully for that given that patient likely will be following a much stricter diet here in the hospital than she normally has at home. 4. Graves disease-continue patient's usual thyroid replacement therapy. 5. Urinary incontinence-continue patient's usual meds Overall patient requires inpatient hospitalization because of her significant anemia and respiratory distress despite lack of hypoxia. With her volume overload status it will be somewhat difficult to manage transfusion as well again another reason for careful inpatient monitoring hospitalization. She will likely be in the hospital greater than 48 hours to include 2 separate midnights. Time Spent With Patient Critical Care time: I spent a total of [] minutes of critical care time on this patient's care today; this time is exclusive of procedural time.
[2021-06-23 10:58] LABS: COVID19 - ADMIT (NP swab/PCR) Negative (Negative)
[2021-06-23] MEDS: FUROSEMIDE 40 MG/4 ML VIAL 20 MG IV (11:58)
[2021-06-23] MEDS: INSULIN LISPRO 100 UNIT/ML 3ML VIAL SUBCUT (13:28)
[2021-06-23 13:36] LABS: Hematocrit 26.3 % (36-46); Hemoglobin 8.1 g/dL (12.0-16.0)
[2021-06-23] MEDS: PRAVASTATIN 20 MG TABLET PO (16:02)
[2021-06-23] MEDS: METFORMIN HCL 500 MG TABLET 1000 MG PO (18:12)
[2021-06-23] MEDS: MAGNESIUM OXIDE 400 MG TABLET PO (22:42)
[2021-06-23] MEDS: ACETAMINOPHEN 325 MG TABLET 650 MG PO (22:43)
[2021-06-23] MEDS: OXYBUTYNIN 5 MG TABLET PO (22:45)
[2021-06-23] MEDS: INSULIN GLARGINE 100 UNIT/ML 3ML PEN 45 UNIT SUBCUT (22:52)
[2021-06-23] MEDS: diphenhydrAMINE 25 MG TABLET PO (23:05)
[2021-06-24 01:30] VITALS: BP 183/84; PULSE 80; RESP 18; TEMP 36.8
[2021-06-24] MEDS: FUROSEMIDE 40 MG/4 ML VIAL IV (02:36)
[2021-06-24 02:42] VITALS: BP 183/84; PULSE 80; RESP 16; TEMP 36.8; O2SAT 97
--- NOTE | 2021-06-24 04:59 | PC.NURSE ---
NOC Shift Note- Patie#rd unit of PRBC's ordered this evening. Patient given unit and IV lasix when blood done infusing. Patient complained of IV site pain.Patient demanded IV removed after blood product was finished, said she couldnt sleep with IV line due to pain and discomfort. IV removed and bandaid applied. Patient alert and oriented and able to make needs known to staff. No complaints of n/v. Safety measures in place. Patient calls for assistance. Call carrizales and phone within reach. Will continue to monitor.
[2021-06-24 06:31] LABS: Add Manual Diff / Slide Review NO; Basophils Absolute Auto 100 /uL (0-100); Basophils Percent Auto 0.8 % (0-2); Eosinophils Absolute Auto 100 /uL (0-450); Eosinophils Percent Auto 1.2 % (2-4); Hemoglobin 9.8 g/dL (12.0-16.0); Lymphocytes Absolute Auto 1500 /uL (1100-4500); Lymphocytes Percent Auto 21.8 % (25-40); Mean Corpuscular HGB Conc 31.8 % (30-36); Mean Corpuscular Hemoglobin 23.4 PG (26-34); Mean Corpuscular Volume 73.4 fL (80-100); Monocytes Absolute Auto 500 /uL (0-900); Monocytes Percent Auto 7.7 % (3-14); Neutrophils Absolute Auto 4800 /uL (1500-7000); Neutrophils Percent Auto 68.5 % (50-75); Platelet Count 154 X10^3/uL (150-400); Red Blood Cell Count 4.19 X10^6/uL (4.0-5.2); Red Cell Distribution Width 21.5 % (11.6-14.8); White Blood Cell Count 7.1 X10^3/uL (4.5-11.0)
[2021-06-24 06:34] LABS: BUN Creatinine Ratio 20.8 (6-22); Blood Urea Nitrogen 15 mg/dL (7-17); Calcium 9.1 mg/dL (8.4-10.2); Carbon Dioxide 34 mmol/L (22-32); Chloride 101 mmol/L (98-107); Estimated Glomerular Filt Rate > 60.0 mL/min (>60); Glucose 136 mg/dL (80-110); HEMOLYSIS < 15 (0-50); Potassium 3.4 mmol/L (3.4-5.1); Sodium 139 mmol/L (137-145)
[2021-06-24 06:39] LABS: NT-proBNP (BNP-Adult 18+) 283 pg/mL (<125)
[2021-06-24 06:44] LABS: Hematocrit 30.8 % (36-46)
[2021-06-24 07:13] LABS: Anisocytosis 2+; Hypochromasia 1+; Microcytosis 1+
[2021-06-24] MEDS: LOSARTAN 50 MG TABLET PO (08:01)
[2021-06-24] MEDS: OXYBUTYNIN 5 MG TABLET PO (08:01)
[2021-06-24] MEDS: METFORMIN HCL 500 MG TABLET 1000 MG PO (08:01)
[2021-06-24] MEDS: PRAVASTATIN 20 MG TABLET PO (08:01)
[2021-06-24] MEDS: LEVOTHYROXINE 137 MCG TABLET PO (08:01)
[2021-06-24] MEDS: MAGNESIUM OXIDE 400 MG TABLET PO (08:01)
[2021-06-24] MEDS: SODIUM CHLORIDE 0.9% FLUSH 10 ML IV (08:02)
[2021-06-24] MEDS: CHOLECALCIFEROL (VITAMIN D3) 1,000 UNIT TABLET 1000 UNIT PO (08:13)
[2021-06-24] MEDS: FERROUS SULFATE 325 MG TABLET 650 MG PO (08:13)
[2021-06-24 09:02] VITALS: BP 151/66; PULSE 73; RESP 18; TEMP 36.7; O2SAT 97
[2021-06-24 09:51] VITALS: O2SAT 97
--- NOTE | 2021-06-24 10:35 | CM.DANOTE ---
Patient is a 71 yo female who was admitted on 06/23/21 for SOB, heavy. Pt has [facility] and [employer] for insurance and her PCP is Dr. Barbara Hickman. EMR was reviewed. Per MD, pt with hx of anemia and admitted for severe anemia and respiratory issues and to receive 3 units blood transfusion and Echo due to bp issues. SW met bedside with pt and spouse and explained role and pt confirms she lives at home in [place] with her spouse of 55 years and is mostly independent with ADL's. Pt denies hx of HH or SNF and confirms that she feels much better today and is hopeful to d/c home via spouse POV today as she has barely slept in the last 48 hours. Pt and spouse do not anticipate any needs and are agreeable with d/c home when stable. Plan: SW to follow for possible d/c home today or tomorrow when medically stable via spouse POV and no identified barriers at this time. DALY Cooper Discharge Planning/Care Management CM Discharge Assessment Start: 06/24/21 09:41 Freq: Status: Active Protocol: Document 06/24/21 09:43 BF (Rec: 06/24/21 10:35 BF [id number]) Discharge Planning Assessment Assigned City Dispatch Supervisor DALY Davey DPOA/Assigned Designee Name spouse of 55 yrs Advance Directives? Yes: DPOA Advance Directives on File No History Provided By Patient,Significant Other, Medical Record Has Patient been admitted in last 30 No days? Prior Living Arrangements House Household Members spouse Type of transporation used prior to Drives own vehicle admit Independent with ADL's Yes Is patient alert and oriented? Yes Caregiver for Another No DME Already Rented / Owned FWW / Walker Barriers to Discharge No Discharge Plan Home Transportation Arrangement spouse bedside and confirms he can transport Referrals Initiated None needed Whiteboard Updated in Patient Room with Yes name and ext. # of City Dispatch Supervisor Review Status In Process Please Provide Date Initial DC 06/24/21 Assessment Was Performed Next Review Type Continued Stay Review
--- NOTE | 2021-06-24 10:58 | P.DS_ITS ---
History of Present Illness History of Present Illness Date Patient Seen: 06/24/21 Time Patient Seen: 10:58 Chief complaint: trouble breathing, heavy feeling in chest Narrative: 71-year-old female presented to [facility] Emergency Department with symptoms of heaviness in her chest difficulty breathing. She has actually seen in the walk-in clinic over concerns for possible COVID infection. She tested negative there. Chest x-ray done there was unremarkable She persist with symptoms and so presented to the ED. In addition to the trouble breathing she describes lower extremity swelling as well as about a 10 lb weight gain over a week or so. She also reports an element of orthopnea. Denies any fever chills or true chest pain no palpitations. No change in bowels She has also been off of her losartan for something like 2-3 weeks over issues with prescription refill in pharmacy or something like that. She is quite hypertensive upon presentation. In the ED she was found to be anemic with hemoglobin of 6.9 hematocrit 23%. She has a marked microcytosis as well which is been seen previously but more dramatic. Her BNP is 345. Chest x-ray does not show evidence of congestive heart failure as above She is admitted for evaluation management Patient reports a similar episode in 2018. She was in [place] at the time presented with significant respiratory issues found to be quite anemic similar to today looks like (reviewing prior notes were patient described this in more detail). She subsequently underwent upper and lower endoscopy. Upper endoscopy demonstrated multiple small ulcers and H pylori and she was treated with usual t riple treatment for H pylori at that time. Colonoscopy was inadequate and she subsequently had repeated when she return to the [facility]. Only small polyp was seen (a tubular adenoma on pathology). She has not seen anybody in Hematology. She is normally anemic with a hemoglobin running around 10 and generally has a microcytosis, reviewing her past labs. Has been at least a year since she was on an iron replacement therapy. Last CBC here was 2019 so difficult to know how long she has been. Even that 2019 study showed mild anemia with microcytosis Discharge Providers Provider Date of admission: 06/23/21 12:21 Discharge Date: 06/24/21 Primary care physician: Barbara Hickman MD Discharge provider: Jero Araujo MD Summary Hospital Course Discharge Diagnosis: 1. Iron deficiency anemia 2. Volume overload with mild pulmonary edema 3. Diabetes type 2 on insulin therapy chronically 4. Hypertension 5 Graves disease 6. History of H pylori induced gastric ulcers Hospital Course: Patient was admitted to the hospital as above. She received a total of 3 units of packed red blood cells along with parental Lasix. With this her blood counts were much improved and patient had complete resolution of her symptoms. She completely resolved her mild orthopnea and was able to be up and around without any real dyspnea upon exertion. She was not hypoxic at any point and that did not really change I felt as though patient's volume overload was a response to her anemia which to me suggests the knee Katie has been relatively chronic. She was guaiac negative upon admission. Therefore is not felt imperative to perform upper and/or lower endoscopy to look for source of GI bleeding at this time. This could be considered as an outpatient depending on her clinical course. She was placed on high dose proton pump inhibitor given that previously she had demonstrated gastric ulcers with H pylori present although this was several years ago Patient clearly needs to be back on iron replacement therapy and depending on clinical course with this may benefit from Hematology consultation regarding per haps the use of parental iron in the future Patient's other medical problems including her diabetes and her thyroid disease remained stable. There was no evidence of any further complication Because of her volume overload/pulmonary edema echocardiography was performed which confirmed essentially structurally normal heart without evidence of systolic or diastolic dysfunction to cause any element of chronic congestive heart failure Patient was felt to be stable given her rapid improvement in symptoms and was discharged home to continue careful monitoring as an outpatient. Status at Discharge Cognitive/behavioral status at discharge: at baseline, oriented Functional status at discharge: independent ambulation Overall status at discharge: patient is progressing back to baseline Time Spent with Patient Time spent: Greater than 30 minutes Exam Vital Signs (past 8 hours): - 06/24/21 09:02 06/24/21 09:51 Temperature 98.0 F Pulse Rate 73 Respiratory Rate 18 Blood Pressure 151/66 H Pulse Oximetry 97 97 Oxygen Delivery Method Room Air Oxygen Flow Rate 0 Narrative Exam Narrative: Elderly female in no obvious distress looks to be feeling much better than when I saw her previously HEENT-unremarkable, normocephalic atraumatic Neck-no lymphadenopathy no bruits Lungs-clear anteriorly and posteriorly no wheezes no crackles good breath sounds Heart-regular rate and rhythm, no murmur, rub, or gallop. normal S1-S2 Abdomen-positive bowel tones, soft, nontender, nondistended, no hepatosplenom egaly, no masses palpable Neuro-normal to screening exam, gait not tested Extremities-no cyanosis clubbing or edema Objective Labs Result Diagrams: 06/24/21 06:10 06/24/21 06:10 Labs: Laboratory Results - last 24 hr 06/23/21 06/23/21 06/23/21 06:46 10:00 13:30 WBC RBC Hgb 8.1 L Hct 26.3 L MCV MCH MCHC RDW Plt Count Neut % (Auto) Lymph % (Auto) Douglas % (Auto) Eos % (Auto) Baso % (Auto) Neut # (Auto) Lymph # (Auto) Douglas # (Auto) Eos # (Auto) Baso # (Auto) RBC Morphology Hypochromasia Anisocytosis Microcytosis Sodium Potassium Chloride Carbon Dioxide BUN Creatinine Estimated GFR BUN/Creatinine Ratio Glucose Calcium NT-Pro-B Natriuret Pep SARS-CoV-2 (PCR) Negative Blood Type A Positive Antibody Screen Negative Crossmatch See Detail 06/24/21 06/24/21 06:10 06:10 WBC 7.1 D RBC 4.19 Hgb 9.8 L Hct 30.8 L MCV 73.4 L MCH 23.4 L MCHC 31.8 RDW 21.5 H Plt Count 154 Neut % (Auto) 68.5 Lymph % (Auto) 21.8 L Douglas % (Auto) 7.7 Eos % (Auto) 1.2 L Baso % (Auto) 0.8 Neut # (Auto) 4800 Lymph # (Auto) 1500 Douglas # (Auto) 500 Eos # (Auto) 100 Baso # (Auto) 100 RBC Morphology Not Reportable Hypochromasia 1+ H Anisocytosis 2+ H Microcytosis 1+ H Sodium 139 Potassium 3.4 Chloride 101 Carbon Dioxide 34 H BUN 15 Creatinine 0.72 Estimated GFR > 60.0 BUN/Creatinine Ratio 20.8 Glucose 136 H Calcium 9.1 NT-Pro-B Natriuret Pep 283 H SARS-CoV-2 (PCR) Blood Type Antibody Screen Crossmatch [facility], [facility] Medical History Acne Ankle pain Breast cancer (2003) Cataract Chronic headaches Colon polyp (~2017) Compression fracture of L3 lumbar vertebra (12/2017) CTS (carpal tunnel syndrome) Diabetes mellitus type 2 in obese (06/28/16) Essential hypertension (06/28/16) Fecal incontinence Fibromyalgia (06/28/16) Graves' disease (06/28/16) H. pylori infection (~2017) Hayfever Hemorrhoids History of heavy periods Iron deficiency anemia Irregular periods/menstrual cycles Malignant neoplasm of left breast, stage 4 (2015) Migraine with aura and without status migrainosus, not intractable (06/28/16) Recurrent UTI (urinary tract infection) Rosacea Shoulder pain Systemic lupus erythematosus (06/28/16) Urinary incontinence Surgical History Anesthesia History of surgery (~1957) Status post hysterectomy Status post knee surgery (1998) Status post knee surgery (2004) Status post shoulder surgery (~2006) Family History Brother Age: 66 Diabetes mellitus Father Cancer Heart disease Essential hypertension Cerebrovascular accident (CVA), unspecified mechanism High cholesterol Blood disease Grandfather Cancer Diabetes mellitus Heart disease Cerebrovascular accident (CVA), unspecified mechanism Grandmother Essential hypertension Heart disease High cholesterol Mother Age: 92 Essential hypertension Grandfather Cerebrovascular accident (CVA), unspecified mechanism Cancer Grandmother Heart disease Essential hypertension High cholesterol Cancer Social History marital status: household members: spouse pets and animals: Yes education level: college jacqui/episcopalian: lutheran seatbelt use: always helmet use: Yes water heater temp set < 120 deg: Yes working smoke detector in home: Yes fire extinguisher in home: Yes carbon monox detector in home: Yes Smoking Status: Former smoker alcohol intake: former during the past year weight has: remained stable well-balanced diet: about half the time daily servings fruits/ve-4 eating out: 1-3 times/week Type(s) of exercise: walking frequency: 3-4 times per week duration: 60-90 minutes/day Discharge Assessment & Plan Assessment and Plan Plan of Treatment: Discharge home on high-dose proton pump inhibitor therapy as well as back on iron replacement therapy No change in her other medications although I do suggest she discontinue aspirin therapy given limited benefit and concern over possible GI issues/gastric source of bleeding Patient should be followed up as an outpatient by her PCP prior to her leaving for [place] for the winter which she was planning to do in the next week or so. Discharge Plan Discharge Plan Patient Disposition: Home Discharge orders & Medications Prescriptions: New ferrous sulfate 325 mg (65 mg iron) Tablet 650 mg PO DAILY Qty: 90 0RF insulin lispro [Humalog U-100 Insulin] 100 unit/mL Solution 10 unit SUBCUT ACHS Qty: 1 0RF oxybutynin chloride 5 mg Tablet 5 mg PO BID Qty: 60 0RF cholecalciferol (vitamin D3) 25 mcg (1,000 unit) Tablet 1,000 unit PO DAILY Qty: 30 0RF Lantus Solostar U-100 Insulin 100 unit/mL (3 mL) Insulin Pen 45 unit SUBCUT BEDTIME Qty: 1 0RF pantoprazole 40 mg tablet,delayed release (DR/EC) 40 mg PO BID Qty: 60 1RF Continued losartan 50 mg tablet 50 mg PO DAILY 0RF furosemide 20 mg tablet 20 mg PO DAILY 0RF pravastatin 20 mg tablet 20 mg PO DAILY 0RF metformin 1,000 MG tablet 1,000 mg PO BIDCC Qty: 0 0RF magnesium oxide 500 MG tablet 500 mg PO BID Qty: 0 0RF levothyroxine 137 mcg tablet 137 mcg PO QAM Qty: 90 1RF nystatin 100,000 unit/gram cream 1 applictn TOP BID Qty: 45 3RF Linzess 290 mcg capsule See Rx Instructions .ROUTE .COMPLEX Qty: 90 3RF Dose Instruction: TAKE 1 CAPSULE BY MOUTH DAILY Rx Instructions: TAKE 1 CAPSULE BY MOUTH DAILY mirabegron 50 mg tablet extended release 24 hr 50 mg PO DAILY Qty: 90 2RF Discontinued aspirin 81 mg tablet,delayed release (DR/EC) 81 mg PO DAILY Qty: 30 12RF insulin lispro [Humalog U-100 Insulin] 100 unit/mL solution 55 unit SUBCUT QAC Qty: 0 0RF Lantus U-100 Insulin 100 unit/mL solution 55 unit SUBCUT BEDTIME Qty: 1 0RF ferrous sulfate 325 mg (65 mg iron) tablet 650 mg PO Q OTHER DAY Qty: 30 5RF Rx Instructions: Take with 250 mg ascorbic acid without food, avoid antacids and milk products for 2 hours pantoprazole 20 mg tablet,delayed release (DR/EC) See Rx Instructions .ROUTE .COMPLEX Qty: 90 3RF Dose Instruction: TAKE 1 TABLET BY MOUTH DAILY Rx Instructions: TAKE 1 TABLET BY MOUTH DAILY Pharmacist Comment: No change to home insulin routine, unsure if listed doses are correct Follow up/Referrals: Barbara Hickman MD [Primary Care Provider] - 1 Week Discharge Health Status Multidrug resistant organism: No MDRO Diet/Activity/Treatments Diet: Diet as Tolerated and Carb-consistent/Diabetic Discharge Data Primary Care Provider: Barbara Hickman Quality VTE Deep Vein Thrombosis/Pulmonary Embolism Present on Admission: No
--- NOTE | 2021-06-24 11:27 | PC.NURSE ---
Patient ambulating indep in room ,denies shortness of breath. Went over DC instructions and medications with patient, questions answered. Rx sent to [facility]. Patient taken via wc to vehicle driven by spouse. Patient had all belongings.
== END 2021-06-24 11:25 | disposition home or self-care (01) ==
LOC: ED 05:45 → AC 06-24 10:36
PROVIDERS: Admitting Provider Internal Medicine; Emergency Provider Emergency Medicine; PCP Family Medicine; Referring Provider Emergency Medicine; Visit Provider Internal Medicine
DX: D50.9 Iron deficiency anemia, unspecified (principal); R06.02 Shortness of breath; J81.1 Chronic pulmonary edema; I10 Essential (primary) hypertension; E05.00 Thyrotoxicosis with diffuse goiter without thyrotoxic crisis or storm; E11.9 Type 2 diabetes mellitus without complications; Z79.84 Long term (current) use of oral hypoglycemic drugs; Z79.4 Long term (current) use of insulin; R32 Unspecified urinary incontinence; Z20.822 Contact with and (suspected) exposure to COVID-19
CPT/HCPCS: 36415; 36430; 71046; 80048; 80053; 82550; 82553; 82962; 83540; 83550; 83735; 83880; 84484; 85014; 85018; 85025; 85379; 86850; 86900; 86901; 87635; 93005; 93010; 93306; 96372; 96374; 96376; 99217; 99219; 99285; C9803; G0378; P9016; C9113; J1815; J1940

== ENCOUNTER → 2021-07-02 12:39 | Outpatient (CLI) | payer MEDICARE, SELFPAY ==
[2021-06-23 17:36] VITALS: BMI 40.2
[2021-07-02 13:36] LABS: Add Manual Diff / Slide Review NO; Basophils Absolute Auto 100 /uL (0-100); Basophils Percent Auto 2.3 % (0-2); Eosinophils Absolute Auto 100 /uL (0-450); Eosinophils Percent Auto 1.1 % (2-4); Hematocrit 33.2 % (36-46); Hemoglobin 10.4 g/dL (12.0-16.0); Lymphocytes Absolute Auto 1100 /uL (1100-4500); Lymphocytes Percent Auto 21.8 % (25-40); Mean Corpuscular HGB Conc 31.3 % (30-36); Mean Corpuscular Volume 76.6 fL (80-100); Monocytes Absolute Auto 300 /uL (0-900); Monocytes Percent Auto 6.3 % (3-14); Neutrophils Absolute Auto 3500 /uL (1500-7000); Neutrophils Percent Auto 68.5 % (50-75); Platelet Count 222 X10^3/uL (150-400); Red Blood Cell Count 4.34 X10^6/uL (4.0-5.2); Red Cell Distribution Width 21.6 % (11.6-14.8); White Blood Cell Count 5.1 X10^3/uL (4.5-11.0)
[2021-07-02 13:52] LABS: Anisocytosis 2+; Hypochromasia 1+; Microcytosis 1+; Ovalocytes 1+; Poikilocytosis 1+; Polychromasia 1+; Tear Drop Cells 1+
== END ==
PROVIDERS: PCP Family Medicine; Referring Provider Family Medicine; Visit Provider Family Medicine
DX: I10 Essential (primary) hypertension (principal)
CPT/HCPCS: 36415; 85025

== ENCOUNTER → 2022-02-01 10:11 | Outpatient (CLI) | payer MEDICARE, SELFPAY ==
[2021-06-23 17:36] VITALS: BMI 40.2
[2022-02-01 11:01] LABS: Appearance Urine UA CLOUDY; Bilirubin Urine UA NEGATIVE (NEGATIVE); Color Urine UA YELLOW; Glucose Urine UA NEGATIVE (Negative); Ketones Urine UA NEGATIVE (NEGATIVE); Leukocyte Esterase Urine UA TRACE (NEGATIVE); Nitrite Urine UA NEGATIVE (Negative); Occult Blood Urine UA NEGATIVE (Negative); Protein Urine UA NEGATIVE (Negative)
[2022-02-01 11:10] LABS: Amorphous Sediment Urine 1+; Bacteria Urine Moderate (10-30); RBC Urine None Seen (0-5/HPF); Squamous Epithelial Cell Urine >30 /HPF (0-5/HPF); WBC Urine 5-10/HPF (0-5/HPF)
[2022-02-01 12:46] LABS: Thyroid Stimulating Hormone 18.6 uIU/mL (0.47-4.68)
== END ==
PROVIDERS: PCP Family Medicine; Referring Provider Family Medicine; Visit Provider Family Medicine
DX: E05.00 Thyrotoxicosis with diffuse goiter without thyrotoxic crisis or storm (principal); R41.0 Disorientation, unspecified
CPT/HCPCS: 36415; 81001; 84443; 87077; 87086; 87186

== ENCOUNTER → 2023-01-01 10:16 | Outpatient (CLI) | payer MEDICARE, SELFPAY ==
[2021-06-23 17:36] VITALS: BMI 40.2
[2023-01-01 12:06] LABS: Add Manual Diff / Slide Review NO; Basophils Absolute Auto 0 /uL (0-100); Basophils Percent Auto 0.8 % (0-2); Eosinophils Absolute Auto 100 /uL (0-450); Eosinophils Percent Auto 1.5 % (2-4); Hemoglobin 12.3 g/dL (12.0-16.0); Lymphocytes Absolute Auto 1200 /uL (1100-4500); Lymphocytes Percent Auto 22.9 % (25-40); Mean Corpuscular HGB Conc 33.2 % (30-36); Mean Corpuscular Hemoglobin 28.3 PG (26-34); Mean Corpuscular Volume 85.4 fL (80-100); Monocytes Absolute Auto 400 /uL (0-900); Monocytes Percent Auto 8.1 % (3-14); Neutrophils Absolute Auto 3400 /uL (1500-7000); Neutrophils Percent Auto 66.7 % (50-75); Platelet Count 155 X10^3/uL (150-400); Red Blood Cell Count 4.33 X10^6/uL (4.0-5.2); Red Cell Distribution Width 15.3 % (11.6-14.8); White Blood Cell Count 5.1 X10^3/uL (4.5-11.0)
[2023-01-01 12:29] LABS: Alanine Aminotransferase 21 IU/L (<35); Albumin 3.9 g/dL (3.5-5.0); Albumin Globulin Ratio 1.1 (1.0-2.8); Alkaline Phosphatase 55 U/L (38-126); Aspartate Aminotransferase 29 IU/L (14-36); BUN Creatinine Ratio 28.3 (6-22); Bilirubin Total 0.9 mg/dL (0.2-1.3); Blood Urea Nitrogen 28 mg/dL (7-17); Calcium 9.2 mg/dL (8.4-10.2); Carbon Dioxide 26 mmol/L (22-32); Chloride 102 mmol/L (98-107); Cholesterol 217 mg/dL (140-199); Estimated Glomerular Filt Rate 60 mL/min (>60); Globulin 3.5 g/dL (1.7-4.1); Glucose 152 mg/dL (80-110); HDL Cholesterol 47 mg/dL (40-60); HEMOLYSIS < 15 (0-50); LDL Cholesterol Calculated 130 mg/dL (<100); Sodium 137 mmol/L (137-145); Total Protein 7.4 g/dL (6.3-8.2); Triglycerides 198 mg/dL (35-150)
[2023-01-01 12:50] LABS: Thyroid Stimulating Hormone 54.9 uIU/mL (0.47-4.68)
[2023-01-02 03:36] LABS: Labcorp Hemoglobin (Hb) A1c 8.3 % (4.8-5.6)
== END ==
PROVIDERS: PCP Family Medicine; Referring Provider Family Medicine; Visit Provider Family Medicine
DX: I10 Essential (primary) hypertension (principal); D50.0 Iron deficiency anemia secondary to blood loss (chronic); E03.9 Hypothyroidism, unspecified; E11.69 Type 2 diabetes mellitus with other specified complication
CPT/HCPCS: 36415; 80053; 80061; 83036; 84443; 85025

== ENCOUNTER → 2023-01-02 15:46 | Outpatient (CLI) | payer MEDICARE, SELFPAY ==
[2021-06-23 17:36] VITALS: BMI 40.2
[2023-01-02 17:34] LABS: Creatinine Urine Random 90.6 mg/dL
== END ==
PROVIDERS: PCP Family Medicine; Referring Provider Family Medicine; Visit Provider Family Medicine
DX: I10 Essential (primary) hypertension (principal)
CPT/HCPCS: 82043; 82570

== ENCOUNTER → 2023-03-27 18:00 | Outpatient (CLI) | payer MEDICARE, SELFPAY ==
[2021-06-23 17:36] VITALS: BMI 40.2
--- NOTE | 2023-03-27 18:08 | DI.RAD.S_ITS ---
PROCEDURE: XR CHEST 2V INDICATIONS: cough x 7 days, fatigue, reduced appetite TECHNIQUE: 2 views of the chest were acquired. COMPARISON: [facility], CR, XR CHEST 2V, 06/23/2021, 4:24. [facility], CR, XR CHEST 2V, 06/22/2021, 16:32. FINDINGS: Surgical changes and devices: None. Lungs and pleura: Streaky left basilar airspace opacity. No pleural effusions or pneumothorax. Low lung volumes. Mediastinum: Mediastinal contours are normal. Heart size is normal. Bones and chest wall: No suspicious bony abnormalities. Soft tissues appear unremarkable. IMPRESSION: Streaky left basilar airspace opacity, likely atelectasis. Mild infection not excluded. Dictated by: Jaquan Obregon M.D. on 03/27/2023 at 18:48 Approved by: Jaquan Obregon M.D. on 03/27/2023 at 18:52
== END ==
PROVIDERS: PCP Family Medicine; Referring Provider Student in an Organized Health Care Education/Training Program; Visit Provider Student in an Organized Health Care Education/Training Program
DX: R05.9 Cough, unspecified (principal); R53.83 Other fatigue; R52 Pain, unspecified
CPT/HCPCS: 71046

== ENCOUNTER → 2024-04-30 12:39 | Outpatient (CLI) | payer MEDICARE, SELFPAY ==
[2021-06-23 17:36] VITALS: BMI 40.2
[2024-04-30 15:12] LABS: Add Manual Diff / Slide Review NO; Basophils Absolute Auto 100 /uL (0-100); Basophils Percent Auto 1.9 % (0-2); Eosinophils Absolute Auto 100 /uL (0-450); Eosinophils Percent Auto 1.8 % (2-4); Hematocrit 30.2 % (36-46); Hemoglobin 9.5 g/dL (12.0-16.0); Lymphocytes Absolute Auto 1000 /uL (1100-4500); Lymphocytes Percent Auto 24.6 % (25-40); Mean Corpuscular HGB Conc 31.4 % (30-36); Mean Corpuscular Hemoglobin 23.2 PG (26-34); Mean Corpuscular Volume 74.1 fL (80-100); Monocytes Absolute Auto 300 /uL (0-900); Monocytes Percent Auto 6.8 % (3-14); Neutrophils Absolute Auto 2700 /uL (1500-7000); Neutrophils Percent Auto 64.9 % (50-75); Platelet Count 105 X10^3/uL (150-400); Red Blood Cell Count 4.07 X10^6/uL (4.0-5.2); White Blood Cell Count 4.1 X10^3/uL (4.5-11.0)
[2024-04-30 17:11] LABS: Albumin 3.9 g/dL (3.5-5.0); BUN Creatinine Ratio 22.6 (6-22); Blood Urea Nitrogen 19 mg/dL (7-17); Calcium 8.5 mg/dL (8.4-10.2); Carbon Dioxide 26 mmol/L (22-32); Chloride 107 mmol/L (98-107); Estimated Glomerular Filt Rate > 60 mL/min (>60); Glucose 103 mg/dL (80-110); HEMOLYSIS < 15 (0-50); Phosphorous 3.5 mg/dL (2.8-4.1); Potassium 4.2 mmol/L (3.4-5.1); Sodium 140 mmol/L (137-145)
[2024-04-30 17:13] LABS: Hemoglobin A1C% w Est Avg Glu 6.4 % (4.0-6.0)
[2024-04-30 17:15] LABS: Alanine Aminotransferase 14 IU/L (<35); Albumin 3.9 g/dL (3.5-5.0); Alkaline Phosphatase 72 U/L (38-126); Aspartate Aminotransferase 29 IU/L (14-36); BUN Creatinine Ratio 22.1 (6-22); Blood Urea Nitrogen 19 mg/dL (7-17); Calcium 8.6 mg/dL (8.4-10.2); Chloride 107 mmol/L (98-107); Estimated Glomerular Filt Rate > 60 mL/min (>60); Glucose 103 mg/dL (80-110); HDL Cholesterol 50 mg/dL (40-60); HEMOLYSIS < 15 (0-50); Potassium 4.1 mmol/L (3.4-5.1); Sodium 139 mmol/L (137-145); Triglycerides 171 mg/dL (35-150)
[2024-04-30 17:16] LABS: Albumin Globulin Ratio 1.1 (1.0-2.8); Carbon Dioxide 26 mmol/L (22-32); Cholesterol 175 mg/dL (140-199); Globulin 3.4 g/dL (1.7-4.1); LDL Cholesterol Calculated 91 mg/dL (<100); Total Protein 7.3 g/dL (6.3-8.2)
[2024-04-30 18:11] LABS: Free T4, Direct Thyroxine 0.35 ng/dL (0.78-2.19)
[2024-05-04 18:01] LABS: Creatinine Urine Random 238.34 mg/dL
[2024-05-04 18:06] LABS: Microalbumin Urine Random 9.6 mg/dL (0-1.6)
== END ==
PROVIDERS: PCP Family Medicine; Referring Provider Student in an Organized Health Care Education/Training Program; Visit Provider Student in an Organized Health Care Education/Training Program
DX: E11.69 Type 2 diabetes mellitus with other specified complication (principal); Z79.4 Long term (current) use of insulin; E03.9 Hypothyroidism, unspecified; D64.9 Anemia, unspecified; E66.9 Obesity, unspecified; I10 Essential (primary) hypertension; D50.0 Iron deficiency anemia secondary to blood loss (chronic); E78.5 Hyperlipidemia, unspecified; E05.00 Thyrotoxicosis with diffuse goiter without thyrotoxic crisis or storm
CPT/HCPCS: 36415; 80053; 80061; 80069; 82043; 82570; 83036; 84439; 84443; 85025

== ENCOUNTER → 2024-12-28 13:53 | Outpatient (CLI) | payer MEDICARE, SELFPAY ==
[2021-06-23 17:36] VITALS: BMI 40.2
--- NOTE | 2024-12-28 13:55 | DI.MRI.S_ITS ---
PROCEDURE: MR HEAD/BRAIN WO CON INDICATIONS: dementia TECHNIQUE: Non-contrast axial T1 spin echo, axial T2 fast spin echo, sagittal and axial FLAIR, coronal T2 fast spin echo, axial gradient echo, axial diffusion and ADC through the brain. COMPARISON: None. FINDINGS: Image quality: This examination is limited by involuntary motion artifact. CSF spaces: Ventricles appear symmetric in size and shape. Basal cisterns are patent. No extra-axial fluid collections. Brain: No intracranial bleeds or mass effects. There is moderate generalized brain parenchymal volume loss. No abnormal regional volume loss can be seen. Mild chronic small vessel ischemic change is seen. Brainstem appears normal. Diffusion- weighted images show no acute infarct. No chronic ischemic insults. Normal intravascular flow voids are present. Skull and face: Calvarial bone marrow is normal in signal. Orbits are normal. Note is made of bilateral lens replacements. Sinuses: Sinuses and mastoids are clear. IMPRESSION: There is moderate generalized brain parenchymal volume loss seen, without abnormal regional volume loss. Mild underlying chronic small vessel ischemic change can be seen. No findings of acute or subacute infarction can be seen. No prior territorial infarct can be seen. Dictated by: Hermilo Borjas M.D. on 12/28/2024 at 13:36 Approved by: Hermilo Borjas M.D. on 12/28/2024 at 13:37
== END ==
PROVIDERS: PCP Family Medicine; Referring Provider Family Medicine; Visit Provider Family Medicine
DX: F03.90 Unspecified dementia, unspecified severity, without behavioral disturbance, psychotic disturbance, mood disturbance, and anxiety (principal)
CPT/HCPCS: 70551

== ENCOUNTER → 2025-01-20 17:35 | Outpatient (CLI) | payer MEDICARE, SELFPAY ==
[2021-06-23 17:36] VITALS: BMI 40.2
[2025-01-20 18:14] LABS: Add Manual Diff / Slide Review NO; Hematocrit 26.7 % (36-46); Hemoglobin 8.1 g/dL (12.0-16.0); Lymphocytes Absolute Auto 1000 /uL (1100-4500); Mean Corpuscular HGB Conc 30.4 % (30-36); Mean Corpuscular Hemoglobin 22.7 PG (26-34); Mean Corpuscular Volume 74.8 fL (80-100); Platelet Count 102 X10^3/uL (150-400)
[2025-01-20 18:27] LABS: Hemoglobin A1C% w Est Avg Glu 6.0 % (4.0-6.0)
[2025-01-20 18:42] LABS: Alanine Aminotransferase 16 IU/L (<35); Albumin 3.6 g/dL (3.5-5.0); Albumin Globulin Ratio 0.9 (1.0-2.8); Alkaline Phosphatase 60 U/L (38-126); Blood Urea Nitrogen 22 mg/dL (7-17); Calcium 8.1 mg/dL (8.4-10.2); Carbon Dioxide 25 mmol/L (22-32); Chloride 106 mmol/L (98-107); Cholesterol 191 mg/dL (140-199); Estimated Glomerular Filt Rate > 60 mL/min (>60); Globulin 3.8 g/dL (1.7-4.1); Glucose 147 mg/dL (70-99); HDL Cholesterol 45 mg/dL (40-60); HEMOLYSIS < 15 (0-50); Potassium 3.9 mmol/L (3.4-5.1); Sodium 139 mmol/L (137-145); Total Protein 7.4 g/dL (6.3-8.2); Triglycerides 248 mg/dL (35-150)
[2025-01-20 19:32] LABS: Vitamin B12 634 pg/mL (239-931)
[2025-01-20 19:52] LABS: Thyroid Stimulating Hormone 144 uIU/mL (0.47-4.68)
== END ==
LOC: LAB 17:36
PROVIDERS: PCP Family Medicine; Referring Provider Family Medicine; Visit Provider Family Medicine
DX: E11.69 Type 2 diabetes mellitus with other specified complication (principal); F03.90 Unspecified dementia, unspecified severity, without behavioral disturbance, psychotic disturbance, mood disturbance, and anxiety; E66.9 Obesity, unspecified
CPT/HCPCS: 36415; 80053; 80061; 82607; 83036; 83921; 84443; 85025

== ENCOUNTER → 2025-01-24 10:27 | Outpatient (CLI) | payer MEDICARE, SELFPAY ==
[2021-06-23 17:36] VITALS: BMI 40.2
[2025-01-24 10:58] LABS: Iron 46 ug/dL (37-170)
[2025-01-24 11:34] LABS: Ferritin 6 ng/mL (11-264)
== END ==
PROVIDERS: PCP Family Medicine; Visit Provider Family Medicine
DX: D64.9 Anemia, unspecified (principal)
CPT/HCPCS: 82728; 83540

== ENCOUNTER → 2025-04-08 14:19 | Outpatient (CLI) | payer MEDICARE, SELFPAY ==
[2021-06-23 17:36] VITALS: BMI 40.2
[2025-04-08 14:41] LABS: Add Manual Diff / Slide Review NO; Hematocrit 28.3 % (36-46); Hemoglobin 8.6 g/dL (12.0-16.0); Lymphocytes Absolute Auto 900 /uL (1100-4500); Mean Corpuscular HGB Conc 30.5 % (30-36); Mean Corpuscular Hemoglobin 21.1 PG (26-34); Mean Corpuscular Volume 69.1 fL (80-100); Platelet Count 203 X10^3/uL (150-400)
[2025-04-08 14:48] LABS: Hemoglobin A1C% w Est Avg Glu 5.6 % (4.0-6.0)
[2025-04-08 15:21] LABS: HEMOLYSIS < 15 (0-50); Iron 36 ug/dL (37-170)
[2025-04-08 15:37] LABS: Percent Iron Saturation 11 % (15-50); Total Iron Binding Capacity 316 ug/dL (265-497); Transferrin 279 mg/dL (206-381)
[2025-04-08 15:51] LABS: TSH w/ Reflex to FT4 79.10 uIU/mL (0.47-4.68)
[2025-04-08 16:36] LABS: Microcytosis 1+
[2025-04-08 16:37] LABS: Hypochromasia 1+
[2025-04-08 16:55] LABS: Free T4, Direct Thyroxine 0.40 ng/dL (0.78-2.19)
[2025-04-08 17:15] LABS: Appearance Urine UA SL CLOUDY; Bilirubin Urine UA NEGATIVE (NEGATIVE); Glucose Urine UA NEGATIVE (Negative); Ketones Urine UA NEGATIVE (NEGATIVE); Leukocyte Esterase Urine UA TRACE (NEGATIVE); Nitrite Urine UA POSITIVE (Negative); Occult Blood Urine UA NEGATIVE (Negative); Protein Urine UA 1+ (Negative); Specific Gravity Urine UA 1.025 (1.000-1.035); Urobilinogen Urine UA 1.0 E.U./dL (0.2)
[2025-04-08 17:16] LABS: Color Urine UA Dark Yellow; pH Urine UA 5.5 (4.5-8.0)
[2025-04-08 17:26] LABS: Culture Indicated Urine Specimen Cultured
[2025-04-08 17:26] LABS: Alanine Aminotransferase 13 IU/L (<35); Albumin 3.0 g/dL (3.5-5.0); Albumin Globulin Ratio 0.8 (1.0-2.8); Alkaline Phosphatase 77 U/L (38-126); Blood Urea Nitrogen 19 mg/dL (7-17); Calcium 7.9 mg/dL (8.4-10.2); Carbon Dioxide 22 mmol/L (22-32); Chloride 109 mmol/L (98-107); Cholesterol 114 mg/dL (140-199); Estimated Glomerular Filt Rate > 60 mL/min (>60); Globulin 3.7 g/dL (1.7-4.1); Glucose 102 mg/dL (70-99); HDL Cholesterol 33 mg/dL (40-60); HEMOLYSIS < 15 (0-50); Potassium 3.7 mmol/L (3.4-5.1); Sodium 138 mmol/L (137-145); Total Protein 6.7 g/dL (6.3-8.2); Triglycerides 109 mg/dL (35-150)
[2025-04-08 17:59] LABS: Microalbumi Creatinin Ratio Ur 36.0 ug/mg CR (<30)
== END ==
PROVIDERS: PCP Family Medicine; Referring Provider Family Medicine; Visit Provider Family Medicine
DX: E03.9 Hypothyroidism, unspecified (principal); E11.69 Type 2 diabetes mellitus with other specified complication; D64.9 Anemia, unspecified; D50.0 Iron deficiency anemia secondary to blood loss (chronic); I10 Essential (primary) hypertension; R45.1 Restlessness and agitation; R30.0 Dysuria
CPT/HCPCS: 36415; 80053; 80061; 81001; 82043; 82570; 83036; 83540; 83550; 84439; 84443; 85025; 87077; 87086; 87186